=== PATIENT | male | born 1955 | race Caucasian/White ===

== ENCOUNTER 2019-01-01 21:06 | Inpatient (IN) | payer SELFPAY ==
[~2019-01-01] VITALS: Ht 170.2 cm; Wt 56.0 kg
--- NOTE | 2019-01-01 21:30 | NUR ---
PT BIBA DUE TO ALOC, PER PARAMEDICS THAT THEY FOUND PT IN SOMEONE'S BACK YARD AND SEEMS LIKE A FARM WITH A LOT OF CHICKENS, PARAMEDICS STATED THAT PER TRANSPORTATION WORKER OF THE HOUSE THAT PT WOULD COME TO FEED CHICKENS AT TIMES BUT THEY DON'T KNOW PT, UPON ARRIVAL PT IS AWAKE BUT DISORIENTED AND CONFUSED, UNABLE TO ANSWER THE QUESTIONS, INCLUDED WITH NAME, OR WHERE IS HE AT, PT ABLE TO FOLLOW SIMPLE COMMANDS IN HUNGAR[place], BREATHING EVEN AND UNLABORED, LUNG SOUNDS CLEAR, ON ROOM AIR WITH SPO2:100%, NO RESP DISTRESS NOTED, PULSES PALPABLE, NO EDEMA NOTED, GENERALIZED WEAKNESS, ABD SOFT AND FLAT WITH ACTIVE BS, BED BATH GIVEN UPON ARRIVAL DUE TO PT WAS FULL WITH URINE AND FECES, MSE DONE BY DR CLIFTON.
--- NOTE | 2019-01-01 22:03 | NUR ---
PT WAS FOUND AT [address] [place] [address]. SPOKE WITH [facility] JANA BATES ADVISED TO CALL [facility] .
--- NOTE | 2019-01-01 22:05 | NUR ---
CALLED [facility] AND SPOKE WITH CRIS, PER CRIS THAT ALL THE INFO THEY HAVE IS ON THE RUN SHEET.
[2019-01-01 22:09] LABS: UA SPECIFIC GRAVITY <=1.005 (1.005-1.035); microscopic required? YES; urine erythrocyte 2+ (NEGATIVE)
[2019-01-01 22:10] LABS: BASOPHIL % 0.3 % (0-2)
[2019-01-01 22:11] LABS: PLATELET COUNT 81 x10^3mcL (130-400)
--- NOTE | 2019-01-01 22:13 | NUR ---
PT TO CT HEAD VIA GURNEY WITH NO DISTRESS NOTED.
--- NOTE | 2019-01-01 22:15 | NUR ---
SPOKE WITH [facility] JARET, PER JARET THAT SHE WILL SEND SOMEONE TO ED AND TRY TO IDENTIFY PT.
--- NOTE | 2019-01-01 22:22 | NUR ---
PT BACK FROM CT HEAD, NO DISTRESS NOTED.
--- NOTE | 2019-01-01 22:28 | NUR ---
DR CLIFTON MADE AWARE OF PT'S BP-178/101, NO NEW ORDER RECEIVE AT THIS TIME.
--- NOTE | 2019-01-01 22:34 | NUR ---
DR CLIFTON MADE AWARE OF PT'S TROP 0.114.
[2019-01-01 22:48] LABS: ALKALINE PHOSPHATASE 126 U/L (46-116); ALT/SGPT 53 U/L (16-63); AST/SGOT 103 U/L (15-37); BILIRUBIN TOTAL 3.8 mg/dL (0.20-1.00); CALCIUM 8.2 mg/dL (8.5-10.1); CARBON DIOXIDE 19.6 mmol/L (21-32); CHLORIDE SERUM 111 mmol/L (98-107); CREATININE SERUM 1.4 mg/dL (0.7-1.3); GFR1 55 mL/min; GLUCOSE SERUM 190 mg/dL (74-106); SODIUM SERUM 148 mmol/L (136-145); TOTAL PROTEIN, SERUM 7.6 g/dL (6.4-8.2)
[2019-01-01 22:50] LABS: ALBUMIN 2.4 g/dL (3.4-5.0)
[2019-01-01 22:54] LABS: POTASSIUM SERUM 2.7 mmol/L (3.5-5.1)
--- NOTE | 2019-01-01 22:57 | NUR ---
DR CLIFTON MADE AWARE OF PT'S LACTID ACID-3.1, K:2.7.
[2019-01-01 23:01] LABS: CK-MB 2.6 ng/mL (0-3.6)
--- NOTE | 2019-01-01 23:13 | NUR ---
OFFICER YOVANNY IS HERE AND TRY TO IDENTIFY PT'S NAME.
--- NOTE | 2019-01-01 23:31 | NUR ---
OFFICER YOVANNY WAS ABLE TO IDENTIFY PT, PT'S NAME- JIM CUNNINGHAM, ISSAC- [birth year]. SSI:[id number]
--- NOTE | 2019-01-01 23:33 | NUR ---
PT TO CT ANGIO-PULMONARY VIA GURNEY.
--- NOTE | 2019-01-01 23:43 | NUR ---
PER ADMITTING- KLESI THAT ALL THE INFO GIVEN BY [facility], ALL THE INFO CAME OUT WITH JIM VITALE.
--- NOTE | 2019-01-01 23:45 | NUR ---
PT IS BACK FROM CT ANGIO PULMONARY.
[2019-01-02] VITALS (8 sets, daily range): BP systolic 154–197; BP diastolic 80–103
--- NOTE | 2019-01-02 00:16 | NUR ---
ASA 324 MG VIA ORAL ADMINISTERED, DR CLIFTON MADE AWARE OF PT'S AMARILIS:182/101, NO NEW ORDER RECEIVE AT THIS TIME.
[2019-01-02 00:19] LABS: AMPHETAMINE QUAL UR NONE DETECTED (See below)
--- NOTE | 2019-01-02 00:42 | NUR ---
REPORT CALLED TO ARTURO-YUSUF, ALL QUESTIONS ANSWERED AND CONCERNS ADDRESSED.
[2019-01-02 00:54] LABS: MAGNESIUM 1.4 mg/dL (1.8-2.4); PHOSPHOROUS 3.6 mg/dL (2.5-4.9)
--- NOTE | 2019-01-02 01:20 | NUR ---
RECEIVED PT FROM ED VIA STEPHANIE. PT STATED HIS NAME IS CONOR, BUT PATIENT WAS IDENTIFED BY PD TO BE JIM SILVER. PT IS DISORIENTED AND CONFUSED. TELE 7 PLACED ON PT READING STA. IV NOTED TO LAC PATENT AND INTACT. ENDORSD PT TO PRIMARY NURSE ARTURO
--- NOTE | 2019-01-02 01:35 | NUR ---
PT ARRIVED FROM ED. A/O X1, CONFUSED. TELE #7 SHOWING SINUS TACHYCARDIA, DENIES CHEST PAIN AT THIS TIME. PULSES PALPABLE IN ALL EXTREMITIES, NO EDEMA NOTED. PURULENT DRAINAGE NOTED TO EYES. LUNG SOUNDS CTA BILATERALLY, NO RESPIRATORY DISTRESS. BOWEL SOUNDS ACTIVE, PT HAD BLACK TARRY STOOLS. DR ANDRADE INFORMED. GENERALIZED WEAKNESS. ABRASIONS TO BLE, STEPHANIA. IV PATENT AND INTACT. BED IN LOWEST POSITION, SIDE RAILS UP X2, CALL LIGHT WITHIN REACH. WILL CONTINUE TO MONITOR.
--- NOTE | 2019-01-02 01:41 | NUR ---
TEMP 102.1, DR ANDRADE INFORMED.
--- NOTE | 2019-01-02 01:57 | NUR ---
LACTIC ACID 2.5, DR LUPE ROJAS.
--- NOTE | 2019-01-02 06:12 | NUR ---
PT CURRENTLY RESTING IN BED, NO ACUTE DISTRESS. A/O X1. ALL NEEDS MET AND ATTENDED TO. BP 180/106, TEMP 101, DR YAN INFORMED. BED IN LOWEST POSITION, SIDE RAILS UP X2, CALL LIGHT WITHIN REACH. IV PATENT AND INTACT. WILL ENDORSE CARE TO ONCOMING NURSE.
[2019-01-02 07:16] LABS: BASOPHIL % 0.1 % (0-2)
[2019-01-02 07:43] LABS: CALCIUM 7.4 mg/dL (8.5-10.1); CARBON DIOXIDE 20.8 mmol/L (21-32); CHLORIDE SERUM 115 mmol/L (98-107); CREATININE SERUM 1.1 mg/dL (0.7-1.3); GFR1 > 60 mL/min; GLUCOSE SERUM 139 mg/dL (74-106); MAGNESIUM 1.4 mg/dL (1.8-2.4); PHOSPHOROUS 2.8 mg/dL (2.5-4.9); SODIUM SERUM 150 mmol/L (136-145)
[2019-01-02 07:44] LABS: PLATELET COUNT 70 x10^3mcL (130-400); RED CELL DISTRIBUTION WIDTH 15.3 % (11.5-14.5)
[2019-01-02 07:51] LABS: POTASSIUM SERUM 2.5 mmol/L (3.5-5.1)
[2019-01-02 08:16] LABS: BILIRUBIN DIRECT 1.81 mg/dL (0.0-0.2); BILIRUBIN TOTAL 3.5 mg/dL (0.20-1.00)
--- NOTE | 2019-01-02 08:54 | NUR ---
AT 0705 - RECEIVED PATIENT FROM NIGHT NURSE. RESTING WITH EYES CLOSED. RESPIRATIONS REGULAR. MONITOR SHOWING SINUS TACH; RATE 112. PATIENT HAD RECEIVED HYDRALAZINE AT 0625 FOR ELEVATED BP. COOLING MEASURES IN PLACE FOR FEVER. IV INFUSING NS AT 150 ML/HR. BED EXIT ALARM ACTIVE. AT 0730 - ULTRASOUND AT BEDSIDE. AT 0750 - PATIENT DROWSY BUT AWAKE. SAYS THAT HIS NAME IS ANGELICA CONNELLY. UNABLE TO GIVE BIRHT YEAR BUT SAYS THAT HE IS 52 YRS OLD. SPEAKING MOSTLY IN [place]. RECEIVED CALL FROM LAB WITH K+ OF 2.5 BP NOW 154/80. TEMP 99.1 CALL PLACED FOR DOCTOR TO NOTIFY OF K+ LEVEL AND LATEST BP PATIENT WAS ORDERED IVP METOPROLOL. AT 0808 - DECEIVED CALL FROM LAB WITH TROPONIN LEVEL OF 0.149. CALL PLACED FOR DR NGUYEN. AT 0815 - DR NGUYEN PER PHONE. NOTIFIED OF K AND TROPONIN LEVELS. OK TO HOLD IV METOPROLOL AT THIS TIME.
--- NOTE | 2019-01-02 09:26 | NUR ---
PATIENT AWAKE AND COOPERATIVE. WAS ABLE TO TAKE PO MEDS AT SCHEDULED.
--- NOTE | 2019-01-02 13:26 | NUR ---
AT 1100 - SEEN BY DR SARMIENTO DURING MORNING ROUNDS. MEDICAL TEAM DOCTORS AND CHARGE NURSE ALSO PRESENT. PATIENT IS MORE AWAKE AT THIS TIME BUT REMAINS CONFUSED. AMBULATED TO BATHROOM WITH ASSISTANCE BUT TOO WEAK AND UNSTEADY TO RETURN TO BED AMBULATING, SO RETURNED TO BED IN WHEELCHAIR. DOCTORS WILL ORDER PO MEDICATION FOR ELEVATED BP INSTEAD OF IV METOPROLOL. AT 1110 - COMMENCED 20 MEQ K-RIDER. TO INFUSE OVER 2 HR. AT 1240 - PATIENT HAD ANOTHER SEMI-LIQUID BM; DARK BROWN, BUT UNABLE TO COLLECT SPECIMEN DUE TO PATIENT GETTING OUT OF BED UNASSISTED AND HAVING BM ON THE FLOOR. PATIENT WASHED AND RETURNED TO BED. SITTING UP FOR LUNCH. AT 1300 - IV INFUSION CHANGED TO 1/2 NS AT 100ML/HR PER NEW ORDERS. AT 1315 - SEEN BY DR CRANDALL. HE SPOKE WITH DR STEVENS ABOUT RECOMMENDATIONS. PATIENT RESTING QUIETLY. BED EXIT ALARM ACTIVE.
--- NOTE | 2019-01-02 13:52 | NUR ---
GIVEN APRESOLINE 10 MG PO PER EMAR FOR PERSISTANTLY ELEVATED BP OF 180/85.
--- NOTE | 2019-01-02 13:56 | NUR ---
RECEIVED CALL FROM LAB WITH TROPONIN OF 0.111. THIS IS A DOWNWARD TREND, NOT REPORTED.
--- NOTE | 2019-01-02 14:17 | NUR ---
AT 1405 - RECEIVED CALL FROM LAB WITH LACTIC ACID OF 2.5. DR CASTANEDA NOTIFIED. RECEIVED ORDERS FOR BOLUS OF 500 ML
--- NOTE | 2019-01-02 14:34 | NUR ---
AT 1430 - COMMENCED 500 ML IV BOLUS. PATIENT ALSO GIVEN 1 MG ATIVAN PO PER EMAR. ALSO GIVEN DOSE OF KCL 40 MEQ PO. ECHOCARDIOGRAM AT BEDSIDE.
--- NOTE | 2019-01-02 15:00 | NUR ---
Discount pharmacy card and list for low cost medical clinics given to patient by Pamela Mendoza.
--- NOTE | 2019-01-02 15:27 | NUR ---
PATIENT HAVING FREQUENT LARGE LIQUID BOWEL MOVEMENTS IN BED. WASHED AND MADE COMFORTABLE. PATIENT IS AWAKE, ALERT BUT REMAINS CONFUSED.
--- NOTE | 2019-01-02 15:44 | NUR ---
BOLUS COMPLETED. IV FLUID NOW D5 1/2 NS + 20 MEQ KCL AT 83 ML/HR. RADIOLOGY WILL TAKE PATIENT FRO CT ABDOMEN.
--- NOTE | 2019-01-02 16:44 | NUR ---
PER CT STAFF, CT CANNOT BE DONE UNTIL AFTER MIDNIGHT PATIENT HAS NHAD CT WITH CONTRAST LESS THEN 24 HR AGO.
--- NOTE | 2019-01-02 18:49 | NUR ---
PATIENT SLEEPING. RESPIRATIONS REGULAR. MONITOR SHOWING SINUS RHYTHM; RATE 78. IV INFUSING D5 1/2 NS + 20 MEQ KCL AT 83 ML/HR. NO FURTHER BM. WILL ENDORSE CARE TO NIGHT NURSE.
--- NOTE | 2019-01-02 22:50 | NUR ---
CHANGED WHOLE BED LINENS AND GOWN PT HAS WATERY STOOL, AWAKE FOLLOWS COMMANDS DURING CARE AND ADL'S, REQUIRES MAX ASSIST FOR BED MOBILITY AND REPOSITIONING NOTED WITH MARKED WEAKNESS, DENIES PAIN, PRN BP MEDS GIVEN, PT IS ASYMTOMATIC WILL CONT TO MONITOR.
--- NOTE | 2019-01-03 03:25 | NUR ---
PT AWAKE RESTLESS, TRYING TO GET OOB, WITH PERIODS OF CONFUSION, MUMBLES AND DOESNT FOLLOW COMMANDS, HAD ANOTHER BM WATERY, CHANGED AND KEEP DRY AND CLEAN ATIVAN IV GIVEN PER PRN ORDER, REPOSITIONED TO COMFORT, CONT TO MONITOR.
[2019-01-03 05:37] VITALS: BP 142/90
--- NOTE | 2019-01-03 06:15 | NUR ---
PT SLEEPING AFTER GETTING ATIVAN IV PER PRN ORDER, NO DISTRESS, NO S/SX OF PAIN NOR DISCOMFORTS, KEEP DRY AND CLEAN, CHECKED AT INTERVALS, WILL ENDORSE TO ONCOMING NURSE.
[2019-01-03 06:34] LABS: BASOPHIL % 0.7 % (0-2)
[2019-01-03 07:00] LABS: PLATELET COUNT 77 x10^3mcL (130-400)
[2019-01-03 07:08] LABS: CALCIUM 7.3 mg/dL (8.5-10.1); CARBON DIOXIDE 20.2 mmol/L (21-32); CHLORIDE SERUM 116 mmol/L (98-107); CREATININE SERUM 0.9 mg/dL (0.7-1.3); GFR1 > 60 mL/min; GLUCOSE SERUM 120 mg/dL (74-106); MAGNESIUM 1.4 mg/dL (1.8-2.4); PHOSPHOROUS 2.6 mg/dL (2.5-4.9); SODIUM SERUM 148 mmol/L (136-145)
--- NOTE | 2019-01-03 07:26 | NUR ---
RECEIVED PATIENT FROM NIGHT NURSE. SLEEPING. RESPIRATIONS REGULAR. MONITOR SHOWING SINUS RHYTHM WITH OCCASIONAL PAC; RATE 68. IV INFUSING D5 1/2 NS + 20 MEQ KCL AT 83 ML/HR. SEEN BY DR STEVENS. DR WILL CHANGE PATIENT SEDATION/ATIVAN SCHEDULE.
[2019-01-03 07:29] LABS: POTASSIUM SERUM 2.8 mmol/L (3.5-5.1)
--- NOTE | 2019-01-03 07:30 | NUR ---
RECEIVED CALL FROM LAB WITH K+ LEVEL OF 2.8. DR STEVENS NOTIFIED.
[2019-01-03 08:16] VITALS: BP 171/84
--- NOTE | 2019-01-03 09:03 | NUR ---
AT 0840 - PATIENT TAKEN TO RADIOLOGY FOR CT SCAN.
--- NOTE | 2019-01-03 10:07 | NUR ---
AT 0935 - BACK IN ROOM. COMMENCED FIRST BAG OF MAGNESIUM RIDER. PATIENT TO RECEIVE TOTAL OF 4 GRAMS FOR MG LEVEL OF 1.4.
--- NOTE | 2019-01-03 10:13 | NUR ---
SEEN BY DR SARMIENTO DURING MORNING ROUNDS. MEDICAL TEAM DOCTORS AND CHARGE NURSE ALSO PRESENT. PLAN TO ADJUST ATIVAN DOSAGE. PLAN FOR PLACEMENT EARLY NEXT WEEK.
--- NOTE | 2019-01-03 10:28 | NUR ---
Initial Nutrition Assessment: Mehdi Ponce 242T-B Dx:ALOC, Sepsis PMHx: Unknown PSHx: Unknown Labs: (01/03) Na:148H, K:2.8L, BH, Ca:7.3L, M.4L, CK:735H, Trop:0.149/0.111H, H/H:10.9/32L (01/02) Ammonia: 70H, Lactic acid:2.4H, Meds: Aldactone, Ativan, Cephulac, D5 NS, Erythromycin, Folic Acid, KCL, Protonix, Theragran, Zofran Diet: Regular PO intake since admission: (01/02) B:50% L:40% (01/03) NPO for CT of abdomen Ht: 67in, 5'7" Wt:123#, 55.82kg BMI:19.3kg/m2 (normal) Bed scale: IBW:148#, 67kg %IBW:83% UBW: Age: 45 y/o male Food Allergies: unable to obtain information Skin: RLE dark discoloration, lump 10cm on right side of neck Pierre: 18 Edema: None GI: active bowel sounds Last BM: 01/03. frequent watery stools due to pt on lactulose and for CT of abdomen. Nutrition Consult: pt altered and malnourished Per H&P, pt [place], unconscious. Pt's history is limited due to AMS. Per progress note 01/02, pt is still confused but getting better. Per Dr. Ji (GI), recommend CT scan of abdomen with contrast 3 phasic (liver, in particular) and start pt on Ativan for alcohol withdrawal along with folic acid, thiamine and MVI. During visit, pt was not in room. Pt was downstairs for CT of abdomen. Per nurse note, pt eating 40-50% of meals. pt with loose stools due to nbeing on lactulose. Problem with: N/V/C: no D: Yes, on lactulose for elevated ammonia level Problems with: Chewing/Swallowing: No Current appetite: poor Recent wt change: unable to assess %wt change: unable to assess Vitamin/Supplement use: unable to obtain information due to AMS Special diet at home: unable to obtain information due to AMS Physical activity: unable to obtain information due to AMS Nutrition education given No, pt with AMS Food-drug interactions? Yes Education given? No Estimated Nutritional Needs Based on body weight actual body weight 56kg Energy:1770-7900 kcal/day (30-35kcal/kg for weight gain ) Protein: g/day (1g/kg for maintenance) Fluid: 1680-1960mL/day (1 mL/kcal) Nutrition Diagnosis: 1. Inadequate oral intake related to pending CT of abdomen as evidenced by current NPO status. Intervention 1. Recommend advance diet as tolerated to Regular. 2. Recommend adding Ensure Enlive BID (provides 700kcal and 40g protein) due to PO intake 45% x 2 meals. Monitor/Evaluate Goal: NPO <3 days, diet advancement and PO intake at least 75% of estimated needs Monitor: NPO status, diet advancement, PO intake, Labs, GI function and weights F/U in 2-3 days as high risk:01/05-3
--- NOTE | 2019-01-03 11:55 | NUR ---
K-RIDER NOW IN PROGRESS. PATIENT REMAINS DROWSY BUT EASILY ROUSED.
[2019-01-03 11:56] VITALS: BP 174/99
--- NOTE | 2019-01-03 13:08 | NUR ---
RECEIVED CALL FROM RADIOLOGY WITH CRITICAL REPORT OF CT ABDOMEN. SPOKE WITH DR NGUYEN AND SHE VISUALLY NOTED PRINTED REPORT. SHE WILL TELL DR SARMIENTO. PER REPORT, MASS SUSPICIOUS FOR HEPATOCELLULAR CARCINOMA.
--- NOTE | 2019-01-03 14:28 | NUR ---
AT 1400 - GIVEN PRN DOSE OF HYDRALAZINE 10 MG PO FOR BP 174/90. PATIENT WAKES BRIEFLY, BUT REMAINS SLEEPING MOST OF THE TIME. HAS BEEN INCONTINENT OF URINE AND STOOL. BM LIQUID BROWN BUT WAS SMEERED ON INCONTINENCE PAD AND UNABLE TO BE COLLECTED FOR STOOL SPECIMEN. PATIENT WASHED AND REPOSITIONED FOR COMFORT.
--- NOTE | 2019-01-03 15:41 | NUR ---
PATIENT IS A LITTLE MORE AWAKE AT THIS TIME. WAS ABLE TO EAT SOME LUNCH - APPROX 40% OF FOOD ON TRAY. RECEIVED ORDERS FOR SURGICAL AND ONCOLOGY CONSULT. PER DR NGUYEN, DR SIMPSON WILL SEE PATIENT ON OUTPATIENT BASIS BUT DR BLAIR WILL SEE HIM DURING HOSPITAL STAY.
[2019-01-03 16:06] VITALS: BP 162/73
[2019-01-03 16:41] VITALS: BP 112/73
--- NOTE | 2019-01-03 17:06 | NUR ---
FLY SETTER VASQUEZ CALLED TO [facility] AND SPOKE WITH CYNTHIA TO VERIFY PATIENT'S NAME AND DATE OF BEEN GIVEN BY THE PATIENT TO THE NURSE ELIZABETH THAT HE'S NAME IS ANGELICA COLEMAN AND 59 [address] [employer]. SHE TOLD THE FLY SETTER THAT IT WAS ALREADY VERIFIED. CYNTHIA CALLED BACK AND SPOKE WITH VASQUEZ AND TOLD THAT SHE COMPARED HIS NAME IT'S ANGELICA BUT SPELLED HONG AND IS SAME AND SHE GAVE HIS ID NO [id number].
--- NOTE | 2019-01-03 18:00 | NUR ---
CALLED TO ADMITTING TO CHANGE HIS NAME AND IN THE FACE SHEET.
--- NOTE | 2019-01-03 18:56 | NUR ---
STIL DROWSY BUT MORE AWAKE THIS PM. CALM AND COOPERATIVE. ALL MG AND K-RIDERS COMPLETED. IV NOW INFUSING D5 1/2 NS + 20 MEQ KCL AT 80 ML/HR. NO FURTHER BM THIS AFTERNOON. PATIENT ATE DINNER. GOOD APPETITE. WILL ENDORSE CARE TO NIGHT NURSE.
--- NOTE | 2019-01-03 19:35 | NUR ---
ASLEEP AROUSABLE TO VERBAL STIMULUS ORIENTED X1 ABLE TO TELL HIS NAME, SLOW TO RESPOND IN SHORT PHRASES, MARKED WEAKNESS MAX ASSIST FOR BED MOBILITY, INCONTINENT BOTH BOWEL AND BLADDER HAS EPISODES OF LOOSE STOOL ON LACTULOSE FOR ELEVATED AMMONIA LEVEL, PT ON D5 1/2NS +20K @ 80CC/HR IV ACCESS LAC PATENT N0N INFIL, SR IN THE MONITOR TELE #7, SCD'S FOR DVT PROPHYLAXIS, REPOSITIONED TO COMFORT AND KEEP DRY AND CLEAN, NO DISTRESS LUNGS CTA, NO COUGHING OR CHEST CONGESTION, SHIFT ASSESSMENT, CONT TO MONITOR.
[2019-01-03 21:03] VITALS: BP 117/73
--- NOTE | 2019-01-03 22:02 | NUR ---
PT AWAKE AT THIS TIME ASKING FOR WATER, ABLE TO DRINK 2 GLASSES OF WATER, ASPIRATION PREC, DENIES PAIN, AZERI SPEAKING ABLE TO MAKE NEEDS KNOWN, ASKING TO TURN DOWN TV VOLUME, ATTENDED NEEDS, BED ALARM ON.
[2019-01-04 05:35] VITALS: BP 151/73
--- NOTE | 2019-01-04 07:09 | NUR ---
PT AWAKE ASKING FOR SODA, NO DISTRESS SLEPT WELL DURING THE SHIFT, HAS EPISODES OF GETTING OUT OF BED X1 DURING THE SHIFT, BED ALARM ON, AM MEDS GIVEN, NO SIGNIFICANT CHANGES.
[2019-01-04 07:23] LABS: BASOPHIL % 1.4 % (0-2)
[2019-01-04 07:36] LABS: ALKALINE PHOSPHATASE 137 U/L (46-116); ALT/SGPT 69 U/L (16-63); AST/SGOT 136 U/L (15-37); BILIRUBIN TOTAL 2.32 mg/dL (0.20-1.00); CALCIUM 7.1 mg/dL (8.5-10.1); CHLORIDE SERUM 111 mmol/L (98-107); CREATININE SERUM 0.9 mg/dL (0.7-1.3); GFR1 > 60 mL/min; GLUCOSE SERUM 108 mg/dL (74-106); MAGNESIUM 1.8 mg/dL (1.8-2.4); PHOSPHOROUS 2.8 mg/dL (2.5-4.9); SODIUM SERUM 141 mmol/L (136-145)
[2019-01-04 07:37] LABS: PLATELET COUNT 74 x10^3mcL (130-400); RED CELL DISTRIBUTION WIDTH 14.7 % (11.5-14.5)
[2019-01-04 07:42] LABS: ALBUMIN 1.8 g/dL (3.4-5.0); TOTAL PROTEIN, SERUM 5.9 g/dL (6.4-8.2)
[2019-01-04 07:43] LABS: POTASSIUM SERUM 2.9 mmol/L (3.5-5.1)
--- NOTE | 2019-01-04 07:55 | NUR ---
AAO TO SELF. TELE # 7 SR. LUNGS CTA. NO SOB. O2 SAT ON RA 99%. BS'S ACTIVE TIMES 4. BALDERRAMA WITH GENERALIZED WEAKNESS. IV SITE LAC PATENT, CDI. PERIPHERAL PULSES PALPABLE. NO EDEMA. DRY SCALY PATCH TO LLE LATERAL SCHINN. NO C/O PAIN. NO SOB. O2 SAT ON RA 99%.
[2019-01-04 09:58] VITALS: BP 153/78
[2019-01-04 13:07] VITALS: BP 159/84
--- NOTE | 2019-01-04 13:20 | NUR ---
DR GOODRICH IS AWARE THAT PATIENTS SERUM POTASSIUM IS 2.9, I SENT A PAGE GATE THIS AM AND ALSO TOLD HER DURING ROUNDS TO VISIT PATIENT. I ALSO TOLD KAY SANDOVAL CHARGE NURSE AND SHE SAID SHE WOULD ALSO SEND A PAGE GATE TO REMIND HER.
--- NOTE | 2019-01-04 16:39 | NUR ---
HIS COUSIN CAME TO VISIT HIM. THE COUSINS NAME IS ZHOU VIRK, HIS PHONE NUMBER IS [phone]. HE STATES THE PATIENT IS HOMELESS, SORT OF. THE PATIENT LIVES AT [address] [place] [id number]. HE ACTUALLY LIVES ON THE PROPERTY OF THIS ADDRESS, IN A [employer] THAT THEY FIXED UP FOR HIM, THEY MADE A ROOM FOR HIM THERE. THIS ADDRESS LISTED, HAS A COUSIN WHO LIVES THERE, HIS NAME IS MICHELET ANDREW. ZHOU DOESNT KNOW WHAT MICHELET ANDREW PHONE NUMBER IS. THIS PATIENT HAS NO CHILDREN, OR PARENTS AND HIS SIBLINGS ARE PER ZHOU'S INFORMATION HE GAVE US. HE ONLY HAS 3 COUSINS, THE 2 LISTED ABOVE AND ANOTHER ONE THAT ZHOU ISNT AWARE OF WHERE HE IS. THIS ADDRESS IS WHERE THE PATIENT WAS FOUND, LAYING OUTSIDE OF THE [place] [place] AND THE PEOPLE CALLED 911 AT THE ADDRESS. AT THIS ADDRESS ARE OTHER PEOPLE BESIDES THE COUSIN WHO LIVE THERE, BUT ZHOU DOESNT KNOW WHO THEY ARE.
[2019-01-04 17:20] VITALS: BP 137/72
--- NOTE | 2019-01-04 18:13 | NUR ---
AAO TO SELF. COOPERATIVE. TELE # 7 SR. IV SITE RFA CDI. NO C/O PAIN. NO SOB. FEEDER. STILL HAVING LOOSE STOOLS, SENT A SAMPLE TO LAB FOR OB STOOL, IT WAS NEGATIVE. NO VISITORS AT THIS TIME.
[2019-01-04 18:14] VITALS: Ht 170.2 cm; Wt 56.0 kg
--- NOTE | 2019-01-04 18:29 | NUR ---
BED ALARM ON, HE GETS CONFUSED AND WILL CLIMB OUT OF BED. FALL PRECAUTIONS ON, FALLING STAR AT DOOR, YELLOW SOCKS ON AND YELLOW ARM BAND.
--- NOTE | 2019-01-04 18:30 | NUR ---
DR GILMAN CALLED, HE ASKED HOW MANY CONSULTS FOR SURGEONS THERE WERE ORDERED FOR THIS PATIENT AND IF HE WAS ONE OF THEM. HE SAID HE WAS SENT A CONSULT TO SEE THIS PATIENT ABOUT HIS HEPATOCELLULAR CARCINOMA. I TOLD HIM DR BLAIR IS A CONSULT, BUT NOT HIM, DR GILMAN. DR GILMAN SAID WE DONT NEED 2 SURGEONS ON CONSULT SO HE WONT BE SEEING THIS PATIENT.
--- NOTE | 2019-01-04 19:48 | NUR ---
SHIFT REASSESSMENT DONE.PATIENT REMAINS CONFUSED,BED ALARM ON FOR SAFETY.PATIENT IS HOMELESS.BREATHING EASY.GEN WEAKNESS.FALL PRECAUTION.IVF INFUSING RFA 22 GUAGE NEW TODAY.TELE 7 SR.PATIENT IS FEEDER PER REPORT.DRY SKIN,PATIENT IS HOMELESS.INCONTINENT OF URINE.KEEP CLEAN AND DRY,GOOD SKIN CARE PROVIDED.CALL LIGHT IN REACH,INSTRUCTED HOW TO USE IT.
[2019-01-04 20:51] VITALS: BP 161/78
--- NOTE | 2019-01-04 21:00 | NUR ---
ALL PM MEDS GIVEN SCHEDULED,SWALLOWS WELL.
--- NOTE | 2019-01-04 22:00 | NUR ---
PATIENT BED ALARM ON,GOT UP,WANTED RESTROOM,HAD LACTULOSE,WATERY STOOL,KEEP CLEAN AND DRY.
--- NOTE | 2019-01-04 23:00 | NUR ---
WANTING SODA AND GIVEN.SWALLOWS WELL.
--- NOTE | 2019-01-05 01:32 | NUR ---
PATIENT CHECKED AT INTERVALS,SLEEPING COMFORTABLY.CALL LIGHT,BED ALARM ON.
--- NOTE | 2019-01-05 04:59 | NUR ---
ASSISTED TO SIT UP,USING URINAL,SAURABH URINE OUTPUT.IVF INFUSING.
[2019-01-05 05:06] VITALS: BP 147/74
--- NOTE | 2019-01-05 05:53 | NUR ---
I AND O MEASURED.IVF INFUSING.WILL CONTINUE PLAN OF CARE.BED AAM ON.
[2019-01-05 06:30] LABS: ALKALINE PHOSPHATASE 214 U/L (46-116); ALT/SGPT 73 U/L (16-63); AST/SGOT 125 U/L (15-37); BILIRUBIN TOTAL 2.05 mg/dL (0.20-1.00); CARBON DIOXIDE 18.4 mmol/L (21-32); CHLORIDE SERUM 110 mmol/L (98-107); GFR1 > 60 mL/min; GLUCOSE SERUM 114 mg/dL (74-106); MAGNESIUM 1.5 mg/dL (1.8-2.4); PHOSPHOROUS 3.3 mg/dL (2.5-4.9); POTASSIUM SERUM 3.4 mmol/L (3.5-5.1); SODIUM SERUM 139 mmol/L (136-145)
[2019-01-05 06:31] LABS: ALBUMIN 1.7 g/dL (3.4-5.0); TOTAL PROTEIN, SERUM 5.7 g/dL (6.4-8.2)
[2019-01-05 06:55] LABS: BASOPHIL % 0.7 % (0-2)
[2019-01-05 07:30] LABS: PLATELET COUNT 85 x10^3mcL (130-400); RED CELL DISTRIBUTION WIDTH 15.1 % (11.5-14.5)
--- NOTE | 2019-01-05 07:48 | NUR ---
RECEIVED AWAKE, FOLLOWS COMMANDS. NO ACUTE RESP. DISTRESS NOTED. NO C/O PAIN OR DISCOMFORT. IVF INFUSING WELL AND SITE CLEAR.CALL LIGHT WITHIN REACH. WILL CONTINUE WITH PLAN OF CARE.
[2019-01-05 08:45] VITALS: BP 137/92
[2019-01-05 11:54] VITALS: BP 162/87
--- NOTE | 2019-01-05 12:18 | NUR ---
RESTING IN NO DISTRESS, NO C/O PAIN OR DISCOMFORT. HAD 3 WATERY STOOLS THIS AM. SAFETY PREC. MAINTAINED.
--- NOTE | 2019-01-05 13:19 | NUR ---
1. Recommend continue with Regular diet.
--- NOTE | 2019-01-05 13:19 | NUR ---
Follow-up Nutrition Assessment :Rodrigue Mathur 242T-B Dx: ALOC Labs: (01/05) K:3.4L, BH, Ca:7L, T bili:2.05H, AST:125H, ALT:73H, M.5L, Ammonia:84H, H/H:10.7/32L Meds:Aldactone, Ativan, Cephulac, D51/2 NS, Erythromycin, Folic acid, Inderal, Protonix, Theragran, Vitamin B1 and Zofran Diet: Regular PO Intake: (01/03) L:40% (needs max assistance at all times per nurse note) D:85% (01/04) B:100% L:100% D:100% (01/05) B:100% Weights: (01/03) 55.8kg (01/05)146.6kg (66kg) pt seems closer to bedscale weight Skin: dry scabs to LLE Pierre: 18 Edema: none GI: active bowel sounds Last BM: 01/04, loose stools due to being on Lactulose Per progress note 01/04, pt is a poor historian. AMS 2/ acute encephalopathy (improving). US of and with findings of 5cm mass in the left lobe of liver. Ct with contrast suspicious for hepatocellular carcinoma. Oncologist notified. During visit, pt was seen sitting up in bed eating lunch (observed >90% eaten). Pt nodded when asked if he has a good appetite. Asked if he has N/V/C, pt nodded no. Per RN note, pt with loose stools due to being on lactulose. Estimated Nutritional Needs Based on actual body weight ( 56kg) Energy:4569-2228 kcal/day (30-35kcal/kg for weight gain) Protein: 56g-67/day (1-1.2g/kg for preservation of LBM) Fluid: mL/day (1 mL/kcal) or per MD Nutrition Diagnosis: 1.Inadequate oral intake related to pending CT of abdomen as evidenced by current NPO status (resolved, pt on PO diet) Intervention: 1. Recommend continue with Regular diet. Monitor/Evaluate: Previous goal: NPO<3 days, diet advancement, PO intake at least 75% of estimated needs (met) Goal: PO intake at least 75% of estimated needs Monitor: PO intake, Labs, GI function F/U in 7 days as low risk:01/12
[2019-01-05 17:07] VITALS: BP 155/84
--- NOTE | 2019-01-05 18:49 | NUR ---
REMAINS IN NO DISTRESS, AWAKE AND ALERT. MORE ALERT THIS PM. FOLLOWS COMMANDS. NO C/O PAIN OR DISCOMFORT.IVF INFUSING WELL AND SITE CLEAR. CALL LIGHT WITHIN REACH AND SIDE RAILS UP. WILL BE ENDORSED TO INCOMING SHIFT.
--- NOTE | 2019-01-05 19:29 | NUR ---
AWAKE, ALERT, ABLE TO STATE NAME, ABLE TO STATE HE CAME FROM [facility], HAS DIFFICULTY REMEMBERING HIS BIRTHDAY, UNABLE TO STATE WHERE HE IS RIGHT NOW. RE-ORIENTED. GENERALIZED WEAKNESS. AMBULATED TO RESTROOM WITH SOME ASSISTANCE FOR SAFETY. PASSED LOOSE STOOL. IVF OF D5 1/2 NS WITH 20 MEQ KCL AT 80ML/HR INFUSING WELL TO IV SITE TO RIGHT FOREARM, IV SITE FREE FROM ERYTHEMA OR SWELLING. BREATHING EVEN AND UNLABORED ON ROOM AIR. INSTRUCTED TO USE CALL LIGHT TO CALL FOR ASSISTANCE, PLACED WITHIN EASY REACH. INSTRUCTED TO ALWAYS CALL FOR ASSISTANCE IF NEEDING TO GET OUT OF BED. HOB ELEVATED 40 DEG. PLACED BED ALARM ON.
[2019-01-05 20:31] VITALS: BP 119/83
--- NOTE | 2019-01-05 22:01 | NUR ---
EYES CLOSED, BREATHING EVEN AND UNLABORED. BED ALARM ON. HOB KEPT ELEVATED 30 DEG
--- NOTE | 2019-01-06 00:32 | NUR ---
eyes closed, breathing even and unlabored. bed alarm on. call light within easy reach. hob elevated 30 deg.
[2019-01-06 05:33] VITALS: BP 172/92
--- NOTE | 2019-01-06 05:38 | NUR ---
URINE SPECIMEN SENT TO LAB
--- NOTE | 2019-01-06 05:48 | NUR ---
EYES CLOSED, EASILY AWAKENED. ABLE TO MAKE NEEDS KNOWN. ABLE TO USE COMMODE AT BEDSIDE BY SELF. IVF INFUSING WELL. CALL LIGHT WITHIN EASY REACH.
[2019-01-06 06:33] LABS: BASOPHIL % 1.3 % (0-2)
[2019-01-06 06:37] LABS: PLATELET COUNT 86 x10^3mcL (130-400); RED CELL DISTRIBUTION WIDTH 15.8 % (11.5-14.5)
[2019-01-06 07:00] LABS: ALKALINE PHOSPHATASE 270 U/L (46-116); ALT/SGPT 81 U/L (16-63); AST/SGOT 128 U/L (15-37); BILIRUBIN TOTAL 1.7 mg/dL (0.20-1.00); CALCIUM 7.4 mg/dL (8.5-10.1); CARBON DIOXIDE 18.5 mmol/L (21-32); CHLORIDE SERUM 110 mmol/L (98-107); CREATININE SERUM 0.9 mg/dL (0.7-1.3); GFR1 > 60 mL/min; GLUCOSE SERUM 107 mg/dL (74-106); MAGNESIUM 1.5 mg/dL (1.8-2.4); PHOSPHOROUS 3.3 mg/dL (2.5-4.9); POTASSIUM SERUM 3.4 mmol/L (3.5-5.1); SODIUM SERUM 140 mmol/L (136-145)
[2019-01-06 07:01] LABS: ALBUMIN 1.8 g/dL (3.4-5.0)
--- NOTE | 2019-01-06 07:02 | NUR ---
RECEIVED PT FROM HAT BLOCK BENCH HAND NURSE. PT RESTING IN BED, AWAKE AND ALERT, RESPONDS TO VERBAL STIMULUS, ABLE TO MAKE NEEDS KNOWN, RESP E/U ON RA. NO ACUTE DISTRESS NOTED. ON TELE 7 SHOWING NSR, HR: 73. IV TO RFA W/ NO SIGNS OF INFILTRATION, IVF INFUSING WELL. BED IN LOWEST POSITION AND CALL LIGHT WITHIN REACH. WILL CONTINUE TO MONITOR.
--- NOTE | 2019-01-06 07:14 | NUR ---
AWAKE AND ALERT, BREATHING UNLABORED. ABLE TO MAKE NEEDS KNOWN. IVF INFUSING WELL. IV SITE FREE FROM ERYTHEMA OR SWELLING. ENDORSED TO NURSE MIRELLA
--- NOTE | 2019-01-06 07:36 | NUR ---
PAGED DR. BRUNSON FOR LAB RESULT MA.5. NO NEW ORDERS AT THIS TIME.
[2019-01-06 07:51] VITALS: BP 155/84
[2019-01-06 12:16] VITALS: BP 147/78
--- NOTE | 2019-01-06 13:04 | NUR ---
PT IN BED HAVING LUNCH, AWAKE AND ALERT, RESP E/U ON RA. ABLE TO MAKE NEEDS KNOWN, NO ACUTE DISTRESS NOTED AT THIS TIME. BED IN LOWEST POSITION AND CALL LIGHT WITHIN REACH. WILL CONTINUE TO MONITOR.
--- NOTE | 2019-01-06 15:12 | NUR ---
Discount pharmacy card and list to low cost medical clinics given to patient by Cecy.
[2019-01-06 16:26] VITALS: BP 136/70
--- NOTE | 2019-01-06 17:20 | NUR ---
PT RESTING IN BED, AWAKE AND ALERT, RESP E/U ON RA. PT DENIES HEADACHE, NAUSEA OR ABD PAIN. NO ACUTE DISTRESS NOTED. IV TO RFA W/ NO SIGNS OF INFILTRATION, IVF INFUSING WELL. BED IN LOWEST POSITION AND CALL LIGHT WITHIN REACH. WILL ENDORSE TO ONCOMING NURSE.
--- NOTE | 2019-01-06 19:20 | NUR ---
RECEIVED PT LAYING IN BED, NO ACUTE DISTRESS OBSEREVED, DENIES PAIN OR DISCOMFORT AT THIS TIME. AA/OX2, ABLE TO CORRECTLY STATE NAME, , AND PLACE, SPEECH CLEAR AND APPORPRIATE, ABLE TO MAKE NEEDS KNOWN. NSR TO TELE #7, HR 64, NO CP. PULSES PRESENT AND EQUAL THROUGHOUT, NO EDEMA. BREATHING ON RA, EVEN AND UNLABORED, NO SOB OR DYSPNEA OBSERVED. ABD ROUND AND SOFT, NONTENDER WITH ACTIVE BOWEL SOUNDS, NO N/V/D. VOIDS FREELY. GENERALIZED WEAKNESS, ABLE TO TURN AND REPOSITION SELF IN BED. IV TO RFA IN PLACE, DRY, PATENT, INTACT, AND INFUSING FINAL BAG OF ORDERD IVF, NO S&S PHLEBITIS OR INFILTRATION NOTED. COMFORT AND SAFETY MEASURES IN PLACE. ALL NEEDS ASSESSED AND ATTENDED TO. CALL LIGHT WITHIN REACH. WILL CONTINUE TO MONITOR
[2019-01-06 20:02] VITALS: BP 147/76
--- NOTE | 2019-01-07 02:18 | NUR ---
PT SITTING UP AND BED, BREATHING EVEN AND UNLABORED, NO ACUTE DISTRESS OBSERVED. DENIES DISCOMFORT AT THIS TIME. IV TO LFA CONVERTED TO S/L. COMFORT AND SAFETY MEASURES IN PLACE. CALL LIGHT WITHIN REACH. WILL CONTINUE TO MONITOR
[2019-01-07 05:12] VITALS: BP 170/88
--- NOTE | 2019-01-07 06:13 | NUR ---
NO SIGNIFICANT CHANGES TO REPORT, PT COMPLIED WITH NURSING CARE THROUGHOUT THE SHIFT WITH NO ACUTE EVENTS OVERNIGHT. NO ACUTE DISTRESS OBSERSVED AT THIS TIME. PT LAYING IN BED, BREATHING EVEN AND UNLABORED. COMFORT AND SAFETY MEASURES MAINTAINED. ALL NEEDS ASSESSED AND ATTENDED TO. CALL LIGHT WITHIN REACH. WILL CONTINUE TO MONITOR AND ENDORSE CARE TO DAY SHIFT NURSE
[2019-01-07 06:19] LABS: BASOPHIL % 1.4 % (0-2)
[2019-01-07 06:26] LABS: PLATELET COUNT 88 x10^3mcL (130-400); RED CELL DISTRIBUTION WIDTH 15.9 % (11.5-14.5)
[2019-01-07 06:42] LABS: CALCIUM 7.6 mg/dL (8.5-10.1); CARBON DIOXIDE 17.7 mmol/L (21-32); CHLORIDE SERUM 110 mmol/L (98-107); CREATININE SERUM 0.9 mg/dL (0.7-1.3); GFR1 > 60 mL/min; GLUCOSE SERUM 102 mg/dL (74-106); MAGNESIUM 1.5 mg/dL (1.8-2.4); POTASSIUM SERUM 3.8 mmol/L (3.5-5.1); SODIUM SERUM 138 mmol/L (136-145)
--- NOTE | 2019-01-07 07:19 | NUR ---
REPORT TAKEN FROM RELIEF MANAGER NURSE AT THE BEDSIDE, PT AWAKE, ABLE TO MAKE NEEDS KNOWN. WILL CONTINUE TO MONITOR.
[2019-01-07 08:14] VITALS: BP 149/86
[2019-01-07 11:51] VITALS: BP 141/78
[2019-01-07 15:17] VITALS: BP 141/78
--- NOTE | 2019-01-07 16:28 | NUR ---
PATIENT SIGNED DC PAPERWORK, IV DC'D FROM RIGHT FOREARM WITH CATH INTACT, SITE DRESSED WITH GAUZE AND TAPE AFTER BLEEDING WAS CONTROLLED. PT TOLERATED WELL, ADVISED TO CHANGE CLOTHES, WILL BE TAKEN TO DC OFFICE/EXIT VIA WHEELCHAIR BY SECURITY SALES CONSULTANT.
--- NOTE | 2019-01-07 16:37 | NUR ---
[facility] CALLED, ETA 30-45 MIN. WILL TAKE PT TO LOBBY AT 1700
[2019-01-09 07:06] LABS: CK-BB 0 % (0); CK-MB 0 % (0-3); CK-MM 100 % (97-100); MACRO TYPE 1 0 % (Not Observed); MACRO TYPE 2 0 % (Not Observed)
[2019-01-13 04:06] LABS: CK-BB 0 % (0); CK-MB 0 % (0-3); CK-MM 95 % (97-100); MACRO TYPE 1 5 % (Not Observed); MACRO TYPE 2 0 % (Not Observed)
[2019-01-13 04:06] LABS: CK-BB 0 % (0); CK-MB 0 % (0-3); CK-MM 95 % (97-100); MACRO TYPE 1 5 % (Not Observed); MACRO TYPE 2 0 % (Not Observed)
== END 2019-01-07 17:00 | disposition home or self-care (01) | DRG 432 ==
LOC: EDBD 21:06 → ED 21:06 → EDBD 01-02 00:11 → DU 01-02 00:11
PROVIDERS: Emergency Medicine; Internal Medicine; ADMIT Internal Medicine
DX: K70.40 Alcoholic hepatic failure without coma (principal); I21.A1 Myocardial infarction type 2; N17.0 Acute kidney failure with tubular necrosis; E43 Unspecified severe protein-calorie malnutrition; K92.1 Melena; E87.2 Acidosis; E87.0 Hyperosmolality and hypernatremia; D68.69 Other thrombophilia; F10.239 Alcohol dependence with withdrawal, unspecified; Z68.1 Body mass index [BMI] 19.9 or less, adult; R16.0 Hepatomegaly, not elsewhere classified; E86.0 Dehydration; E87.6 Hypokalemia; H10.33 Unspecified acute conjunctivitis, bilateral; K70.30 Alcoholic cirrhosis of liver without ascites; Y90.0 Blood alcohol level of less than 20 mg/100 ml
CPT/HCPCS: 83880; 85378; C9113; G0378; G0480; J0360; J0696; J2060; J3475; J3480; J7030; J7040; J7060; Q0092; Q9967

== ENCOUNTER 2019-02-22 19:29 | Inpatient (IN) | payer MEDICAID ==
[~2019-02-22] VITALS: Ht 172.7 cm; Wt 94.0 kg
[2019-02-22 20:22] LABS: BASOPHIL % 1.1 % (0-2); PLATELET COUNT 136 x10^3mcL (130-400)
[2019-02-22 20:26] LABS: CALCIUM 7.1 mg/dL (8.5-10.1); CARBON DIOXIDE 18.3 mmol/L (21-32); CHLORIDE SERUM 110 mmol/L (98-107); CREATININE SERUM 2.2 mg/dL (0.7-1.3); GFR1 33 mL/min; GLUCOSE SERUM 148 mg/dL (74-106); POTASSIUM SERUM 3.7 mmol/L (3.5-5.1); SODIUM SERUM 144 mmol/L (136-145)
[2019-02-22 20:32] LABS: RED CELL DISTRIBUTION WIDTH 15.7 % (11.5-14.5)
[2019-02-22 20:37] LABS: ALKALINE PHOSPHATASE 110 U/L (46-116); ALT/SGPT 34 U/L (16-63); AST/SGOT 45 U/L (15-37); BILIRUBIN TOTAL 1.23 mg/dL (0.20-1.00); LIPASE 184 IU/L (73-393); MAGNESIUM 1.8 mg/dL (1.8-2.4); T4(THYROXINE) 6.9 ug/dL (4.7-13.3)
[2019-02-22 20:39] LABS: ALBUMIN 1.6 g/dL (3.4-5.0)
[2019-02-22 20:57] LABS: CHOLESTEROL 50 mg/dL (<200); HDL CHOLESTEROL 22 mg/dL (40-60)
[2019-02-22 21:09] LABS: rbc morphology (normal/abnorm) ABNORMAL (NORMAL)
[2019-02-23 00:08] LABS: UA SPECIFIC GRAVITY 1.025 (1.005-1.035); microscopic required? YES; urine erythrocyte 2+ (NEGATIVE)
[2019-02-23 00:17] LABS: AMPHETAMINE QUAL UR NONE DETECTED (See below)
[2019-02-23 04:25] LABS: PLATELET COUNT 67 x10^3mcL (130-400); RED CELL DISTRIBUTION WIDTH 15.9 % (11.5-14.5)
[2019-02-23 04:46] LABS: CARBON DIOXIDE 19.2 mmol/L (21-32); MAGNESIUM 1.5 mg/dL (1.8-2.4); POTASSIUM SERUM 4.1 mmol/L (3.5-5.1)
[2019-02-23 04:52] LABS: BAND NEUTROPHIL 10 % (0-10); BASOPHIL 0 % (0-2); MONOCYTE 2 % (0-7); PLATELET MORPHOLOGY GIANT PLATELET SEEN; SEGMENTED NEUTROPHILS 88 % (37-75)
[2019-02-23 04:53] LABS: rbc morphology (normal/abnorm) ABNORMAL (NORMAL)
[2019-02-23 06:38] VITALS: BP 158/90
[2019-02-23 07:00] VITALS: BP 142/89
[2019-02-23 09:43] VITALS: Ht 172.7 cm; Wt 94.0 kg
[2019-02-23 11:24] VITALS: BP 106/67
[2019-02-23 15:28] VITALS: BP 117/69
[2019-02-23 18:30] LABS: CALCIUM 6.3 mg/dL (8.5-10.1); CARBON DIOXIDE 17.8 mmol/L (21-32); CREATININE SERUM 2.1 mg/dL (0.7-1.3); POTASSIUM SERUM 3.7 mmol/L (3.5-5.1)
[2019-02-23 18:44] LABS: PLATELET COUNT 80 x10^3mcL (130-400); RED CELL DISTRIBUTION WIDTH 16.5 % (11.5-14.5)
[2019-02-23 19:23] LABS: BAND NEUTROPHIL 8 % (0-10); BASOPHIL 0 % (0-2); MONOCYTE 2 % (0-7); SEGMENTED NEUTROPHILS 87 % (37-75)
[2019-02-23 19:25] VITALS: BP 143/83
[2019-02-23 19:26] LABS: rbc morphology (normal/abnorm) ABNORMAL (NORMAL)
[2019-02-23 19:27] LABS: PLATELET MORPHOLOGY PLATELETS DECREASED
[2019-02-23 21:08] LABS: PLATELET COUNT 85 x10^3mcL (130-400); RED CELL DISTRIBUTION WIDTH 16.5 % (11.5-14.5)
[2019-02-23 21:14] LABS: BAND NEUTROPHIL 8 % (0-10); BASOPHIL 0 % (0-2); MONOCYTE 2 % (0-7); PLATELET MORPHOLOGY PLATELETS DECREASED; SEGMENTED NEUTROPHILS 87 % (37-75)
[2019-02-23 21:16] LABS: rbc morphology (normal/abnorm) NORMAL (NORMAL)
[2019-02-23 23:41] VITALS: BP 146/78
[2019-02-24 00:55] LABS: PLATELET COUNT 84 x10^3mcL (130-400); RED CELL DISTRIBUTION WIDTH 16.9 % (11.5-14.5)
[2019-02-24 00:59] LABS: BAND NEUTROPHIL 10 % (0-10); MONOCYTE 5 % (0-7); SEGMENTED NEUTROPHILS 80 % (37-75); rbc morphology (normal/abnorm) NORMAL (NORMAL)
[2019-02-24 04:06] VITALS: BP 152/99
[2019-02-24 05:43] LABS: BASOPHIL % 0 % (0-2); PLATELET COUNT 86 x10^3mcL (130-400); RED CELL DISTRIBUTION WIDTH 16.7 % (11.5-14.5)
[2019-02-24 05:47] LABS: CALCIUM 6.9 mg/dL (8.5-10.1); CREATININE SERUM 1.9 mg/dL (0.7-1.3); MAGNESIUM 2.1 mg/dL (1.8-2.4); PHOSPHOROUS 4.6 mg/dL (2.5-4.9); POTASSIUM SERUM 3.7 mmol/L (3.5-5.1)
[2019-02-24 08:19] VITALS: BP 143/73
[2019-02-24 12:40] VITALS: BP 153/88
[2019-02-24 16:21] VITALS: BP 139/79
[2019-02-24 20:57] VITALS: BP 136/77
[2019-02-25] VITALS (9 sets, daily range): BP systolic 115–161; BP diastolic 82–92
[2019-02-25 06:24] LABS: BASOPHIL % 0.3 % (0-2)
[2019-02-25 06:51] LABS: CALCIUM 7.2 mg/dL (8.5-10.1); CARBON DIOXIDE 18.9 mmol/L (21-32); CREATININE SERUM 1.4 mg/dL (0.7-1.3); MAGNESIUM 2.3 mg/dL (1.8-2.4); PHOSPHOROUS 3.4 mg/dL (2.5-4.9); POTASSIUM SERUM 3.7 mmol/L (3.5-5.1)
[2019-02-25 07:25] LABS: PLATELET COUNT 86 x10^3mcL (130-400); RED CELL DISTRIBUTION WIDTH 16.9 % (11.5-14.5)
[2019-02-26 06:06] VITALS: BP 160/86
[2019-02-26 06:55] LABS: BASOPHIL % 0.5 % (0-2)
[2019-02-26 07:01] LABS: CALCIUM 6.8 mg/dL (8.5-10.1); CARBON DIOXIDE 20.6 mmol/L (21-32); CREATININE SERUM 1.5 mg/dL (0.7-1.3); MAGNESIUM 1.8 mg/dL (1.8-2.4); PHOSPHOROUS 2.9 mg/dL (2.5-4.9); POTASSIUM SERUM 3.4 mmol/L (3.5-5.1)
[2019-02-26 07:03] LABS: PLATELET COUNT 90 x10^3mcL (130-400); RED CELL DISTRIBUTION WIDTH 16.5 % (11.5-14.5)
[2019-02-26 09:30] VITALS: BP 122/68
[2019-02-26 12:31] VITALS: BP 137/75
[2019-02-26 13:32] VITALS: BP 139/45
[2019-02-26 17:22] VITALS: BP 134/78
[2019-02-26 20:36] VITALS: BP 129/76
[2019-02-27 05:27] VITALS: BP 139/76
[2019-02-27 06:53] LABS: CALCIUM 6.9 mg/dL (8.5-10.1); CARBON DIOXIDE 21.3 mmol/L (21-32); CHLORIDE SERUM 111 mmol/L (98-107); CREATININE SERUM 1.2 mg/dL (0.7-1.3); GFR1 > 60 mL/min; GLUCOSE SERUM 94 mg/dL (74-106); MAGNESIUM 1.8 mg/dL (1.8-2.4); POTASSIUM SERUM 3.5 mmol/L (3.5-5.1); SODIUM SERUM 140 mmol/L (136-145)
[2019-02-27 07:12] LABS: BASOPHIL % 0.5 % (0-2)
[2019-02-27 07:39] LABS: PLATELET COUNT 94 x10^3mcL (130-400); RED CELL DISTRIBUTION WIDTH 15.9 % (11.5-14.5)
[2019-02-27 09:01] VITALS: BP 125/75
[2019-02-27] MEDS ORDERED: FER300 PO (10:39)
[2019-02-27] MEDS ORDERED: PRI20 PO (10:40)
[2019-02-27] MEDS ORDERED: MIRALAX17 GM/Dose PO (10:41)
[2019-02-27] MEDS ORDERED: LEVOFLOXACIN500 M1 PO (10:48)
[2019-02-27 14:21] VITALS: BP 125/75
[2019-02-27 16:50] VITALS: BP 126/67
[2019-02-27 21:30] VITALS: BP 14/72; BP 142/72
[2019-02-28 05:57] VITALS: BP 140/77
[2019-02-28 06:40] LABS: BASOPHIL % 0.4 % (0-2)
[2019-02-28 06:53] LABS: PLATELET COUNT 111 x10^3mcL (130-400); RED CELL DISTRIBUTION WIDTH 16.2 % (11.5-14.5)
[2019-02-28 06:54] LABS: CALCIUM 7.3 mg/dL (8.5-10.1); CARBON DIOXIDE 20.2 mmol/L (21-32); CHLORIDE SERUM 110 mmol/L (98-107); CREATININE SERUM 1.1 mg/dL (0.7-1.3); GFR1 > 60 mL/min; GLUCOSE SERUM 136 mg/dL (74-106); MAGNESIUM 1.9 mg/dL (1.8-2.4); PHOSPHOROUS 2.9 mg/dL (2.5-4.9); POTASSIUM SERUM 3.5 mmol/L (3.5-5.1); SODIUM SERUM 139 mmol/L (136-145)
[2019-02-28 09:02] VITALS: BP 133/60
[2019-02-28 17:02] VITALS: BP 149/85
[2019-02-28 20:34] VITALS: BP 129/72
[2019-03-01 05:12] VITALS: BP 139/78
[2019-03-01 06:44] LABS: BASOPHIL % 0.3 % (0-2)
[2019-03-01 06:59] LABS: CALCIUM 7.3 mg/dL (8.5-10.1); CARBON DIOXIDE 22.6 mmol/L (21-32); CHLORIDE SERUM 110 mmol/L (98-107); GFR1 > 60 mL/min; GLUCOSE SERUM 126 mg/dL (74-106); MAGNESIUM 1.7 mg/dL (1.8-2.4); POTASSIUM SERUM 4.1 mmol/L (3.5-5.1); SODIUM SERUM 139 mmol/L (136-145)
[2019-03-01 07:00] LABS: PLATELET COUNT 122 x10^3mcL (130-400); RED CELL DISTRIBUTION WIDTH 15.9 % (11.5-14.5)
[2019-03-01 09:17] VITALS: BP 102/63
[2019-03-01 17:40] VITALS: BP 148/93
[2019-03-01 20:37] VITALS: BP 162/85
[2019-03-02 05:19] VITALS: BP 156/52
[2019-03-02 07:23] LABS: BASOPHIL % 0.3 % (0-2); PLATELET COUNT 144 x10^3mcL (130-400)
[2019-03-02 07:29] LABS: RED CELL DISTRIBUTION WIDTH 16.4 % (11.5-14.5)
[2019-03-02 07:32] LABS: CALCIUM 7.3 mg/dL (8.5-10.1); CARBON DIOXIDE 18.6 mmol/L (21-32); CHLORIDE SERUM 112 mmol/L (98-107); CREATININE SERUM 0.9 mg/dL (0.7-1.3); GFR1 > 60 mL/min; GLUCOSE SERUM 118 mg/dL (74-106); MAGNESIUM 1.6 mg/dL (1.8-2.4); PHOSPHOROUS 3.4 mg/dL (2.5-4.9); POTASSIUM SERUM 4.1 mmol/L (3.5-5.1); SODIUM SERUM 138 mmol/L (136-145)
[2019-03-02 09:09] VITALS: BP 151/82
[2019-03-02 17:36] VITALS: BP 141/78
[2019-03-02 19:52] VITALS: BP 135/74
[2019-03-03 04:50] VITALS: BP 146/77
[2019-03-03 09:00] VITALS: BP 147/84
[2019-03-03 09:54] VITALS: BP 152/80
[2019-03-03 18:36] VITALS: BP 161/68
[2019-03-03 20:42] VITALS: BP 144/77
[2019-03-04] VITALS (7 sets, daily range): BP systolic 107–149; BP diastolic 53–86
[2019-03-04 06:18] LABS: BASOPHIL % 0.8 % (0-2); PLATELET COUNT 156 x10^3mcL (130-400)
[2019-03-04 06:32] LABS: RED CELL DISTRIBUTION WIDTH 16.1 % (11.5-14.5)
[2019-03-04 06:52] LABS: CALCIUM 7.2 mg/dL (8.5-10.1); CARBON DIOXIDE 23.5 mmol/L (21-32); CHLORIDE SERUM 111 mmol/L (98-107); CREATININE SERUM 0.9 mg/dL (0.7-1.3); GFR1 > 60 mL/min; GLUCOSE SERUM 107 mg/dL (74-106); MAGNESIUM 1.3 mg/dL (1.8-2.4); PHOSPHOROUS 3.5 mg/dL (2.5-4.9); POTASSIUM SERUM 4.1 mmol/L (3.5-5.1); SODIUM SERUM 140 mmol/L (136-145)
[2019-03-05 05:19] VITALS: BP 135/74
[2019-03-05 06:06] LABS: BASOPHIL % 1.2 % (0-2); PLATELET COUNT 152 x10^3mcL (130-400)
[2019-03-05 06:09] LABS: RED CELL DISTRIBUTION WIDTH 16.2 % (11.5-14.5)
[2019-03-05 06:27] LABS: CALCIUM 7.5 mg/dL (8.5-10.1); CARBON DIOXIDE 21.5 mmol/L (21-32); CHLORIDE SERUM 111 mmol/L (98-107); GFR1 > 60 mL/min; GLUCOSE SERUM 138 mg/dL (74-106); MAGNESIUM 1.8 mg/dL (1.8-2.4); PHOSPHOROUS 3.6 mg/dL (2.5-4.9); POTASSIUM SERUM 3.3 mmol/L (3.5-5.1); SODIUM SERUM 141 mmol/L (136-145)
[2019-03-05 08:44] VITALS: BP 130/72
[2019-03-05 09:16] VITALS: BP 133/65
[2019-03-05] MEDS ORDERED: ALDACTONE50 MG PO (11:53)
[2019-03-05] MEDS ORDERED: FUROSEMIDE40 MG PO (11:53)
[2019-03-05 13:14] VITALS: BP 125/61
== END 2019-03-05 13:41 | disposition home or self-care (01) | DRG 720 ==
LOC: ED 19:29 → IC 21:15 → MU 21:15 → DU 21:15 → MU 21:15 → IC 02-23 06:22 → DU 02-24 17:23 → MU 02-26 17:53 → EDBD 03-05 13:41 → MU 03-05 13:41
PROVIDERS: Emergency Medicine; General Practice; Internal Medicine Gastroenterology; ADMIT Internal Medicine
PROC: 06L38CZ Occlusion of Esophageal Vein with Extraluminal Device, Via Natural or Artificial Opening Endoscopic (ICD-10-PCS; principal; 2019-02-23 10:00)
PROC: 0DC68ZZ Extirpation of Matter from Stomach, Via Natural or Artificial Opening Endoscopic (ICD-10-PCS; 2019-02-23 10:00)
DX: A41.9 Sepsis, unspecified organism (principal); K72.00 Acute and subacute hepatic failure without coma; N17.0 Acute kidney failure with tubular necrosis; E43 Unspecified severe protein-calorie malnutrition; I85.11 Secondary esophageal varices with bleeding; R18.8 Other ascites; D62 Acute posthemorrhagic anemia; K74.60 Unspecified cirrhosis of liver; E83.51 Hypocalcemia; K57.92 Diverticulitis of intestine, part unspecified, without perforation or abscess without bleeding; K52.9 Noninfective gastroenteritis and colitis, unspecified; N50.89 Other specified disorders of the male genital organs; K42.9 Umbilical hernia without obstruction or gangrene; Z68.26 Body mass index [BMI] 26.0-26.9, adult
CPT/HCPCS: 43235; 82962; 83880; 97116-GP; 97530-GP; C9113; G0378; G0480; J0171; J0360; J0696; J1200; J1610; J1940; J2250; J2310; J2354; J2405; J2543; J2930; J3010; J3475; J3490; J7030; J7040; J7050; P9016; P9047; Q0092

== ENCOUNTER 2019-03-21 09:09 | Emergency (ER) | payer MEDICAID ==
[~2019-03-21] VITALS: Ht 172.7 cm; Wt 74.8 kg
[~2019-03-21 09:09] MED LIST: ALDACTONE50 MG PO; FER300 PO; FUROSEMIDE40 MG PO; LEVOFLOXACIN500 M1 PO; MIRALAX17 GM/Dose PO; PRI20 PO
[2019-03-21 09:20] VITALS: Ht 172.7 cm; Wt 74.8 kg
[2019-03-21 11:54] LABS: BASOPHIL % 1.5 % (0-2)
[2019-03-21 12:06] LABS: CALCIUM 7.5 mg/dL (8.5-10.1); CARBON DIOXIDE 25.9 mmol/L (21-32); CHLORIDE SERUM 109 mmol/L (98-107); CREATININE SERUM 1.1 mg/dL (0.7-1.3); GFR1 > 60 mL/min; GLUCOSE SERUM 111 mg/dL (74-106); POTASSIUM SERUM 3.4 mmol/L (3.5-5.1); SODIUM SERUM 142 mmol/L (136-145)
[2019-03-21 12:10] LABS: PLATELET COUNT 112 x10^3mcL (130-400); RED CELL DISTRIBUTION WIDTH 15.3 % (11.5-14.5)
[2019-03-21 12:11] LABS: ALBUMIN 1.9 g/dL (3.4-5.0); ALKALINE PHOSPHATASE 228 U/L (46-116); ALT/SGPT 28 U/L (16-63); AST/SGOT 38 U/L (15-37); BILIRUBIN TOTAL 1.32 mg/dL (0.20-1.00); TOTAL PROTEIN, SERUM 6.5 g/dL (6.4-8.2)
[2019-03-21 14:07] LABS: SOURCE FLUID ASCITES
[2019-03-21 14:08] LABS: APPEARANCE FLUID HAZY; COLOR FLUID PALE YELLOW; RBC FLUID 700 /cumm; WBC FLUID 80 /cumm
[2019-03-21 15:20] LABS: LYMPHOCYTE FLUID 61 %
[2019-03-21 15:24] LABS: MONOCYTE FLUID 12 %
[2019-03-21 16:27] VITALS: BP 159/99
== END 2019-03-21 16:27 | disposition home or self-care (01) ==
LOC: ED 09:09 → EDBD 09:09 → ED 16:27
PROVIDERS: Emergency Medicine
DX: K74.60 Unspecified cirrhosis of liver (principal); R18.8 Other ascites
CPT/HCPCS: 36415; 49083; 83880; J2001

== ENCOUNTER 2019-03-23 18:25 | Inpatient (IN) | payer MEDICAID ==
[~2019-03-23] VITALS: Ht 170.2 cm; Wt 90.7 kg
[2019-03-23 19:09] VITALS: Ht 170.2 cm; Wt 90.7 kg
[2019-03-23 21:37] LABS: BASOPHIL % 1.3 % (0-2)
[2019-03-23 21:48] LABS: PLATELET COUNT 116 x10^3mcL (130-400); RED CELL DISTRIBUTION WIDTH 15.3 % (11.5-14.5)
[2019-03-23 21:56] LABS: ALKALINE PHOSPHATASE 247 U/L (46-116); ALT/SGPT 32 U/L (16-63); AST/SGOT 66 U/L (15-37); BILIRUBIN TOTAL 1.6 mg/dL (0.20-1.00); CALCIUM 7.3 mg/dL (8.5-10.1); CARBON DIOXIDE 24.9 mmol/L (21-32); CHLORIDE SERUM 108 mmol/L (98-107); CREATININE SERUM 1.2 mg/dL (0.7-1.3); GFR1 > 60 mL/min; GLUCOSE SERUM 104 mg/dL (74-106); SODIUM SERUM 142 mmol/L (136-145); TOTAL PROTEIN, SERUM 6.4 g/dL (6.4-8.2)
[2019-03-23 22:03] LABS: ALBUMIN 1.8 g/dL (3.4-5.0); AMYLASE 327 U/L (25-115)
[2019-03-23 22:04] LABS: POTASSIUM SERUM 2.8 mmol/L (3.5-5.1)
[2019-03-23 22:40] LABS: LIPASE 5911 IU/L (73-393)
[2019-03-24 00:47] LABS: microscopic required? NO
[2019-03-24 01:11] LABS: urine erythrocyte NEGATIVE (NEGATIVE)
[2019-03-24 01:29] VITALS: BP 161/90
[2019-03-24 02:01] LABS: AMPHETAMINE QUAL UR NONE DETECTED (See below)
[2019-03-24 06:10] VITALS: BP 153/84
[2019-03-24 07:43] LABS: BASOPHIL % 1.2 % (0-2)
[2019-03-24 07:45] LABS: PLATELET COUNT 98 x10^3mcL (130-400); RED CELL DISTRIBUTION WIDTH 15.5 % (11.5-14.5)
[2019-03-24 08:29] LABS: CARBON DIOXIDE 26.7 mmol/L (21-32); CHLORIDE SERUM 110 mmol/L (98-107); CREATININE SERUM 1.1 mg/dL (0.7-1.3); GFR1 > 60 mL/min; GLUCOSE SERUM 96 mg/dL (74-106); LIPASE 721 IU/L (73-393); MAGNESIUM 1.6 mg/dL (1.8-2.4); PHOSPHOROUS 3.2 mg/dL (2.5-4.9); POTASSIUM SERUM 3.3 mmol/L (3.5-5.1); SODIUM SERUM 143 mmol/L (136-145)
[2019-03-24 09:34] VITALS: BP 146/78
[2019-03-24 12:54] VITALS: BP 161/84
[2019-03-24 17:19] VITALS: BP 149/74
[2019-03-24 20:49] VITALS: BP 147/82
[2019-03-25 05:31] VITALS: BP 140/77
[2019-03-25 07:03] LABS: CALCIUM 7.3 mg/dL (8.5-10.1); CARBON DIOXIDE 24.2 mmol/L (21-32); CHLORIDE SERUM 110 mmol/L (98-107); CREATININE SERUM 1.2 mg/dL (0.7-1.3); GFR1 > 60 mL/min; GLUCOSE SERUM 90 mg/dL (74-106); MAGNESIUM 1.6 mg/dL (1.8-2.4); POTASSIUM SERUM 3.6 mmol/L (3.5-5.1); SODIUM SERUM 142 mmol/L (136-145)
[2019-03-25 07:09] LABS: PLATELET COUNT 100 x10^3mcL (130-400); RED CELL DISTRIBUTION WIDTH 15.4 % (11.5-14.5)
[2019-03-25 08:39] LABS: BAND NEUTROPHIL 3 % (0-10); BASOPHIL 0 % (0-2); MONOCYTE 14 % (0-7); PLATELET MORPHOLOGY PLATELETS DECREASED; SEGMENTED NEUTROPHILS 69 % (37-75)
[2019-03-25 08:40] LABS: rbc morphology (normal/abnorm) ABNORMAL (NORMAL)
[2019-03-25 10:09] VITALS: BP 153/80
[2019-03-25] MEDS ORDERED: FOL1 PO (10:57)
[2019-03-25] MEDS ORDERED: THI100 PO (10:57)
[2019-03-25 12:55] VITALS: BP 158/91
[2019-03-25 13:02] VITALS: BP 153/80
[2019-03-25] MEDS ORDERED: TOR10 PO (14:03)
== END 2019-03-25 18:52 | disposition home or self-care (01) | DRG 280 ==
LOC: ED 18:25 → DU 23:42 → EDBD 03-25 18:52 → DU 03-25 18:52
PROVIDERS: Emergency Medicine; General Practice; ADMIT Internal Medicine
DX: K70.40 Alcoholic hepatic failure without coma (principal); K70.31 Alcoholic cirrhosis of liver with ascites; E43 Unspecified severe protein-calorie malnutrition; G93.41 Metabolic encephalopathy; D61.818 Other pancytopenia; E87.8 Other disorders of electrolyte and fluid balance, not elsewhere classified; E83.42 Hypomagnesemia; N50.89 Other specified disorders of the male genital organs; E87.6 Hypokalemia; F10.11 Alcohol abuse, in remission; R74.0 Nonspecific elevation of levels of transaminase and lactic acid dehydrogenase [LDH]; K42.9 Umbilical hernia without obstruction or gangrene; Z91.19 Patient's noncompliance with other medical treatment and regimen; Z91.14 Patient's other noncompliance with medication regimen; Z59.0 Homelessness; Z68.31 Body mass index [BMI] 31.0-31.9, adult
CPT/HCPCS: 97116-GP; C9113; G0378; G0480; J0696; J1885; J1940; J2405; J3010; J3475; J7040; J7060; P9047; Q0092

== ENCOUNTER 2019-04-06 08:49 | Emergency (ER) | payer MEDICAID ==
[~2019-04-06] VITALS: Ht 172.7 cm; Wt 94.1 kg
[~2019-04-06 08:49] MED LIST changes: +FOL1 PO; +THI100 PO; +TOR10 PO
[2019-04-06 08:52] VITALS: Ht 172.7 cm; Wt 94.1 kg
[2019-04-06 12:25] VITALS: BP 151/82
== END 2019-04-06 12:25 | disposition home or self-care (01) ==
LOC: ED 08:49
DX: R18.8 Other ascites (principal); Z98.890 Other specified postprocedural states
CPT/HCPCS: 49083

== ENCOUNTER 2019-04-10 14:09 | Inpatient (IN) | payer MEDICAID ==
[~2019-04-10] VITALS: Ht 170.2 cm; Wt 85.3 kg
[2019-04-10 14:14] VITALS: Ht 170.2 cm; Wt 85.3 kg
--- NOTE | 2019-04-10 14:30 | NUR ---
PT HOT TO TOUCH. UNABLE TO OBTAIN AN ORAL TEMP DUE TO COLD DRINK. PT ASSISTED TO ASSIGN BED FROM TRIAGE VIA WHEELCHAIR. PLACED ON RATING SPECIALIST. EKG IN PROGRESS.
--- NOTE | 2019-04-10 14:48 | NUR ---
PER PT STS THAT HE HAS ACITIS AND WAS DRAINED FROM THE RT MID ABDOMEN THAT WILL NOT DROP DRAINING "CLEAR FLUIDS". PT STS THAT HE HAS GENERALIZED ABDOMINAL PAIN. NOTED ABDOMEN DISTENTION, WITH UMBILICAL HERNIA. PT CAME WITH COLOSTOMY BAG ON LT SIDE TO COVER AN OLD DRAINAGE SITE FOR ACSITIS. PT HAS ANOTHER DRAINING SITE TO RT COVERED WITH GAUZE, PT STS THAT IT WILL NOT STOP DRAINING. PT DENIES ANY TEMP. PT STS THAT HE HAS 10/10 PAIN IN ABDOMEN. EDEMA NOTED TO REHANA EXTREMITIES. PER PT STS PENIL INFLAMMATION. VSS. RESP E/U. PT PALCED ON CM. WILL CONTINUE TO MONITOR. +BOWEL SOUNDS TO ALL FOUR QUAD, LAST BM THIS MORNING. NOTED MASS TO RT CLAVIAL, UNKNOWN MASS.
[2019-04-10 15:18] LABS: BASOPHIL % 0.3 % (0-2)
[2019-04-10 15:19] LABS: PLATELET COUNT 126 x10^3mcL (130-400); RED CELL DISTRIBUTION WIDTH 16.1 % (11.5-14.5)
--- NOTE | 2019-04-10 15:27 | NUR ---
PT RETURNED FROM CT.
[2019-04-10 15:29] LABS: CALCIUM 7.9 mg/dL (8.5-10.1); CARBON DIOXIDE 22.1 mmol/L (21-32); CHLORIDE SERUM 110 mmol/L (98-107); CREATININE SERUM 1.3 mg/dL (0.7-1.3); GFR1 60 mL/min; GLUCOSE SERUM 125 mg/dL (74-106); POTASSIUM SERUM 3.4 mmol/L (3.5-5.1); SODIUM SERUM 141 mmol/L (136-145)
[2019-04-10 15:34] LABS: ALKALINE PHOSPHATASE 241 U/L (46-116); ALT/SGPT 33 U/L (16-63); AST/SGOT 46 U/L (15-37); BILIRUBIN TOTAL 1.37 mg/dL (0.20-1.00)
[2019-04-10 15:38] LABS: ALBUMIN 2.1 g/dL (3.4-5.0)
[2019-04-10 16:19] LABS: microscopic required? YES; urine erythrocyte 1+ (NEGATIVE)
--- NOTE | 2019-04-10 16:42 | NUR ---
PT IN POSITION OF COMFORT. PT STS THAT HE HAS " A LOT" OF PAIN IN HIS ABDOMEN. DR. BYRNE MADE AWARE. VSS. RESP E/U. WILL CONTINUE TO MONITOR.
--- NOTE | 2019-04-10 17:08 | NUR ---
ATTEMPTED TO CALL RE[ORT TO AXEL RN STS SHE IS PASSING MEDS AND TO CALL BACK IN A FEW MINUTES. WILL ATTEMPT TO CALL AXEL GOLDBERG IN A FEWE MINUTES.
--- NOTE | 2019-04-10 17:21 | NUR ---
REPORT GIVEN TO AXEL GOLDBERG TO ASSUME CARE OF PT.
--- NOTE | 2019-04-10 18:40 | NUR ---
AT 1800 - RECEIVED PATIENT FROM ER NURSE. SETTLED IN ROOM, ORIENTED TO SURROUNDINGS AND PLACED ON CARDIAC MONITORING. ADMITTED WITH ASCITES. PATIENT IS AWAKE, ALERT AND APPEARS ORIENTED. RESOURCE NURSE AT BEDSIDE DOING HISTORY AND ADMISSION. IV INFUSING VANCOMYCIN. AT 1830 - ABDOMINAL ULTRASOUND FOR ASCITES EVAL HAS BEEN DONE. TECH WILL CALL DR BRUNSON WITH RESULTS. PATIENT SITTING UP IN BED EATING A SANDWICH. AT 1845 - IV INFUSING NS AT 100 ML/HR WILL ENDORSE CARE TO NIGHT NURSE.
[2019-04-10 18:52] VITALS: BP 149/84
--- NOTE | 2019-04-10 19:16 | NUR ---
RECEIVED PT FROM ER. PT ADMIT FOR SEPSIS, PT IS A/O X4, VERBAL RESPONSIVE. LUNG SOUND DIM REHANA BASE. NO SOB, PO2 98% IN ROOM AIR. PT IS ON TELE 27, NSR WITH PVC, DENY ANY CHEST PAIN OR DISCOMFORT, BOWEL SOUND PRESENT ALL 4 QUADRANTS, VERY DISTENTED. THERE ARE S/P PARACENTESIS PUNCH SITE AT REHANA ABD. RIGHT SIDE HAS MOD CLEAN DRAINAGE. COVER WITH DRY DRESSING. PT HAS SWELLING BELOW WAIST. +3 EDEMA REHANA LEG, AND SWELLING AT SCROTUM TOO. IV AT RIGHT AC, NO LEAKING, NO INFILTRATION. ALL ADLS ASSIST, ALL NEED MET, CALL LIGHT IN REACH. WILL CONTINUE TO MONITOR.
--- NOTE | 2019-04-10 19:30 | NUR ---
REC'D PT FROM DAY NURSE. PT RESTING IN BED. AAOX3. REORIENTED TO AGE. FOLLOWS COMMANDS. SPEECH CLEAR. DROWSY. TELE 27. DENIES CP, DIZZINESS, OR PALPITATIONS. DENIES RESP DISTRESS OR SOB. BREATHING EVEN/UNLABORED ON RA. ABD SOFT/ROUND/DISTENDED. DENIES ABD PAIN OR N/V. C/O TENDERNESS TO BLQ UPON PALPATION, MORE TENDERNESS ON THE RLQ. PITTING EDEMA BLE. ELEVATED WITH PILLOWS. SCROTUM AND PENIS EDEMATOUS WELL. VOIDING FREELY. GEN WEAKNESS. PUNCTURE SITE TO RLQ LEAKING LARGE AMT OF SEROUS FLUID. DRESSING SATURATED AND REMOVED. APPLIED 4X4 GAUZE X4, COVERED WITH ABD PAD AND SECURED WITH SILK TAPE. IV TO RAC PATENT AND INFUSING, SITE WNL. CALL LIGHT WITHIN REACH, BED AT LOWEST POSITION. WILL CONTINUE TO MONITOR. FOLLOWED UP WITH DR. FERNÁNDEZ REGARDING US GUIDED PARACENTESIS- TO BE DONE IN THE MORNING.
--- NOTE | 2019-04-10 19:40 | NUR ---
DR. FERNÁNDEZ MADE AWARE OF K 3.4 AND AMMONIA 46.
--- NOTE | 2019-04-10 20:09 | NUR ---
SPOKE TO DR. FERNÁNDEZ. MADE AWARE OF REPEAT CXR RESULTS OF 25% RIGHT HYDROPNEUMOTHORAX, INCREASED FROM <5% R LUNG APEX DELAYED PNEUMOTHORAX FROM LAST CXR. NO CHANGES IN ORDERS AT THIS TIME.
[2019-04-10 20:59] VITALS: BP 124/79
[2019-04-10 21:44] LABS: AMPHETAMINE QUAL UR NONE DETECTED (See below)
[2019-04-11] VITALS (11 sets, daily range): BP systolic 123–155; BP diastolic 80–89
--- NOTE | 2019-04-11 01:51 | NUR ---
PT RESTING IN BED WITH EYES CLOSED. HOB UP. NO SIGNS OF DISTRESS NOTED. BREATHING EVEN/UNLABORED ON RA. BLE ELEVATED WITH PILLOWS. CALL LIGHT WITHIN REACH, BED AT LOWEST POSITION. WILL CONTINUE TO MONITOR.
--- NOTE | 2019-04-11 06:24 | NUR ---
PT UP TO THE RESTROOM TO VOID. DRESSING TO RLQ SATURATED WITH SEROUS FLUID. DRESSING REMOVED. GOWN AND CHUCKS WERE WET. PT GIVEN A BED BATH, LINENS, AND GOWN CHANGED. DRESSING REAPPLIED- 5 4X4 GAUZE AND ABD PAD. WHOLE DRESSING SECURED WITH FOAM TAPE. PLAN FOR PARACENTESIS TODAY. CALL LIGHT WITHIN REACH, BED AT LOWEST POSITION. WILL ENDORSE TO DAY NURSE.
[2019-04-11 06:43] LABS: BASOPHIL % 1.9 % (0-2)
[2019-04-11 06:44] LABS: PLATELET COUNT 99 x10^3mcL (130-400); RED CELL DISTRIBUTION WIDTH 16.2 % (11.5-14.5)
[2019-04-11 07:06] LABS: CALCIUM 7.4 mg/dL (8.5-10.1); CARBON DIOXIDE 24.4 mmol/L (21-32); CREATININE SERUM 1.3 mg/dL (0.7-1.3); POTASSIUM SERUM 3.4 mmol/L (3.5-5.1)
--- NOTE | 2019-04-11 07:45 | NUR ---
RECEIVED PATIENT FROM NIGHT NURSE. AWAKE, ALERT AND ORIENTED TO PERSON, PLACE, TIME AND SITUATION. CONVERSING APPROPRIATELLY. MONITOR SHOWING SINUS RHYTHM; RATE 90'S. IV SALINE LOCKED. ABDOMEN DISTENDED, FIRM WITH LEAKING OF ASCITES FLUID FROM R SIDE OF ABDOMEN - DRY DRESSING IN PLACE. PATIENT C/O PAIN IN ABDOMEN AND BLE. NOTED EXTENSIVE EDEMA OF BLE 2+. PATIENT SAT UP IN BED FOR BREAKFAST.
--- NOTE | 2019-04-11 09:47 | NUR ---
AT 0930 - CALL PLACED FOR DR BRUNSON TO NOTIFY OF LOW K LEVEL OF 3.4
--- NOTE | 2019-04-11 14:27 | NUR ---
PARACENTESIS WAS DONE BY DR. ILSSA VELAZQUEZ. 3.4L FLUID COME OUT. PUNCH SITE AT RIGHT SITE OF ABD. DRESSING APPIED BY DR. VELAZQUEZ. LAST B/P WAS 148/87. WILL CONTINUE TO MONITOR THE PT.
--- NOTE | 2019-04-11 14:27 | NUR ---
PARACENTESIS WAS DONE BY DR. LISSA VELAZQUEZ. 3.4L FLUID COME OUT. DRESSING APPIED BY DR. VELAZQUEZ. LAST B/P WAS 148/87. WILL CONTINUE TO MONITOR THE PT.
--- NOTE | 2019-04-11 14:30 | NUR ---
BODY FLUID FROM PARACENTESIS, SENT TO LAB PER ORDER.
--- NOTE | 2019-04-11 15:12 | NUR ---
AT 1240 - RECEIVED WORD THAT PATIENT WILL HAVE PARACENTESIS AT BEDSIDE. WRITTEN CONSENT SIGNED BY PATIENT. PATIENT KEPT NPO UNTIL PROCEDURE COMPLETION. AT 1350 - DR VELAZQUEZ AT [facility]. RESOURCE NURSE ASSISTING DOCTOR AND U/S TECH. AT 1420 - PARACENTESIS COMPLETED. TOTAL OF 3.4 L ASCITIC FLUID REMOVED. PATIENT MADE COMFORTABLE. VS WNL. AT 1500 - PATIENT WASHED AFTER HAVING LARGE SEMI-LIQUID BOWEL MOVEMENT. VSS. PATIENT DOES NOT WANT TO EAT AT THIS TIME. PARACENTESIS SITE, BOTH RECENT AND OLD HAVE SEEPAGE OF CLEAR LIQUID. COVERED WITH ABD PAD.
--- NOTE | 2019-04-11 15:30 | NUR ---
PATIENT C/O PAIN IN ABDOMEN. SPOKE BOY REGARDING AN ORDER FOR PAIN MEDICATION. AWAITING ORDER.
[2019-04-11 18:10] LABS: APPEARANCE FLUID HAZY; COLOR FLUID PALE YELLOW; LYMPHOCYTE FLUID 56 %; MONOCYTE FLUID 28 %; RBC FLUID 623 /cumm; SOURCE FLUID ASCITES; WBC FLUID 57 /cumm
--- NOTE | 2019-04-11 18:51 | NUR ---
PATIENT HAS BEEN MORE COMFORTABLE SINCE RECEIVING IV TORADOL FOR PAIN. HAS HAD SEVERAL SEMI-LIQUID BOWEL MOVEMENTS. DRESSING TO R ABDOMEN PARACENTESIS SITE CURRENTLY DRY. VSS. PATIENT HAS EATEN DINNER. WILL ENDORSE CARE TO NIGHT NURSE.
--- NOTE | 2019-04-11 19:30 | NUR ---
REC'D PT FROM DAY NURSE. PT RESTING IN BED. AAOX4. SPEECH CLEAR, FOLLOWS COMMANDS. TELE 27. DENIES CP, DIZZINESS, OR PALPITATIONS. DENIES RESP DISTRESS OR SOB. BREATHING EVEN/UNLABORED ON RA. PITTING EDEMA BLE, ELEVATED WITH PILLOWS. ABD SOFT/DISTENDED. ABD PAD X2 TO R ABD IN PLACE. SOME SEROUS FLUID ON DRESSING. PT IS S/P PARACENTESIS TODAY. DENIES ABD PAIN OR TENDERNESS. C/O DIARRHEA- PT ON LACTULOSE. VOIDING FREELY. SCROTAL AND PENILE EDEMA- SWELLING REDUCED FROM LAST NIGHT. USING URINAL. GEN WEAKNESS. UP WITH ASSIST AND WALKER. IV TO RAC FLUSHED AND PATENT, SITE WNL. CALL LIGHT WITHIN REACH, BED AT LOWEST POSITION. WILL CONTINUE TO MONITOR.
--- NOTE | 2019-04-11 21:00 | NUR ---
WOUND CARE PROVIDED. ABD DRESSING X2 REMOVED. HEAVY SEROUS DRAINAGE. X2 PUNCTURE SITES TO R ABD. SUPERFICIAL SITE DOES NOT SEEM TO BE LEAKING. INFERIOR SITE LEAKING SEROUS FLUID- LESS THAN LAST NIGHT. 4X4 GAUZE X5 PLACED ON SITES AND COVERED WITH ABD PAD X2. WHOLE DRESSING SECURED WITH FOAM TAPE.
--- NOTE | 2019-04-11 22:28 | NUR ---
PT LAYING IN BED AND C/O FEELING VERY DIZZY. PT PUFFING OUT BREATHS OCCASIONALLY BUT SPEAKING IN SENTENCES. DENIES ANY PAIN OR SOB. BP 135/74, MAP 89, HR 93, RR 14, SPO2 99% ON RA, TEMP 98.6. DR. HANK ROJAS.
--- NOTE | 2019-04-11 22:55 | NUR ---
PT VOMITED ALL OVER THE FLOOR. FOOD RESIDUE. PT CLEANED UP. ZOFRAN GIVEN. REC'D CALL BACK FROM DR. MCKINNEY. REC'D ORDER FOR MECLIZINE. WILL GIVE.
--- NOTE | 2019-04-12 00:03 | NUR ---
PT RESTING IN BED WITH EYES CLOSED. SLEEPING WITH HOB UP. NO SIGNS OF DISTRESS OR PAIN NOTED. BREATHING EVEN/UNLABORED ON RA. BLE ELEVATED WITH PILLOWS. CALL LIGHT WITHIN REACH, BED AT LOWEST POSITION. WILL CONTINUE TO MONITOR.
--- NOTE | 2019-04-12 03:01 | NUR ---
PT RESTING IN BED WITH EYES CLOSED. SNORING. BREATHING EVEN/UNLABORED ON RA. NO S/SX OF PAIN NOTED. HOB UP. CALL LIGHT WITHIN REACH, BED AT LOWEST POSITION.
--- NOTE | 2019-04-12 05:11 | NUR ---
PT SITTING AT THE SIDE OF THE BED. BREATHING EVEN/UNLABORED ON 2L O2 VIA NC, SPO2 99%. O2 REDUCED TO 1L, SPO2 96%. PT C/O FEELING BLOATED. DENIES ABD PAIN. DR. MCKINNEY PAGEGATED- REQUESTED SIMETHICONE. NO SIGNIFICANT CHANGES DURING SHIFT. CALL LIGHT WITHIN REACH, BED AT LOWEST POSITION. WILL ENDORSE TO DAY NURSE
[2019-04-12 05:40] VITALS: BP 131/74
--- NOTE | 2019-04-12 05:47 | NUR ---
PT RESTING IN BED WITH EYES CLOSED. AWAKENS WITH VERBAL STIMULI. DENIES ANY ABD PAIN AT REST. DENIES NAUSEA OR DIZZINESS. DRESSING TO R ABD CDI. PT STATES HE HAD MANY SMALL BOWEL MOVEMENTS IN THE NIGHT. PT CLEANED UP. GOWN AND LINENS CHANGED. BLE AND SCROTAL/PENILE EDEMA REDUCING. ABD STILL DISTENDED BUT SOFT. NO SIGNIFICANT CHANGES DURING SHIFT. CALL LIGHT WITHIN REACH, BED AT LOWEST POSITION. WILL ENDORSE TO DAY NURSE.
--- NOTE | 2019-04-12 07:15 | NUR ---
AO X 4. PT DENIES ANY PAIN/DISCOMFORT. LUNG SOUNDS CLEAR BILATERALLY. ON ROOM AIR. NSR ON MONITOR, TELE #27, HR = 96. IV ON RAC, SALINE LOCKED. ACTIVE BOWEL SOUNDS. ABD'L DISTENDED AND SOFT. ON LACTULOSE, C/O LOOSE STOOL. VOIDS INDEPENDENTLY. GENEREALIZED WEAKNESS. ABD'L PADS ON RLQ S/P PARACENTESIS ON 04/11, NO DRAINAGE NOTED. PULSES PRESENT IN UE AND LE. BLE EDEMA NOTED, 2+ PITTING IN R LE AND 1+ PITTING EDEMA IN L LE. CALL LIGHT WITHIN REACH. INSTRUCTED TO CALL FOR ANY PAIN/DISCOMFORT AND IF PADS BECOME SATURATED. WILL CONTINUE TO MONITOR.
[2019-04-12 07:28] LABS: CALCIUM 7.7 mg/dL (8.5-10.1); CARBON DIOXIDE 22.7 mmol/L (21-32); CREATININE SERUM 1.4 mg/dL (0.7-1.3); MAGNESIUM 1.5 mg/dL (1.8-2.4); PHOSPHOROUS 3.6 mg/dL (2.5-4.9); POTASSIUM SERUM 3.4 mmol/L (3.5-5.1)
[2019-04-12 07:43] LABS: PLATELET COUNT 101 x10^3mcL (130-400); RED CELL DISTRIBUTION WIDTH 15.7 % (11.5-14.5)
[2019-04-12 08:32] VITALS: BP 152/84
--- NOTE | 2019-04-12 10:32 | NUR ---
NURSING CO-SIGN THE DOCUMENTATION ENTERED BY THE IP HAS BEEN REVIEWED. REVIEWED/CO-SIGNED BY: Nurys Aponte DOCUMENTATION DONE BY:IVANIA SAM,STUDENT NURSE
--- NOTE | 2019-04-12 11:00 | NUR ---
PT C/O BEING COLD.PUT THE HEATER ON AND PROVIDED PT WITH WARM BLANKET.
[2019-04-12 12:04] VITALS: BP 152/85
--- NOTE | 2019-04-12 13:25 | NUR ---
PT ATE 100% OF LUNCH. LAYING COMFORTABLY IN BED. CALL LIGHT WITHIN REACH.
[2019-04-12 16:31] VITALS: BP 153/89
--- NOTE | 2019-04-12 18:21 | NUR ---
NO SIGNIFICNAT CHANGE NOTED.WILL ENDORSE TO NEXT SHIFT.
--- NOTE | 2019-04-12 19:20 | NUR ---
REC'D PT FROM DAY NURSE. PT RESTING IN BED. AAOX4, SPEECH CLEAR, FOLLOWS COMMANDS. TELE 27. DENIES CP, DIZZINESS, OR PALPITATIONS. DENIES RESP DISTRESS OR SOB. BREATHING EVEN/UNLABORED ON RA. PITTING EDEMA BLE, ELEVATED WITH PILLOWS. C/O BLE PA IN 11/12. WILL GIVE TORADOL. ABD SOFT/DISTENDED. S/P PARACENTESIS POD #1. DRESSING TO R ABD CDI. DENIES ABD PAIN, TENDERNESS, OR N/V. MILD SCROTAL AND PENILE EDEMA. VOIDING FREELY. AMB WITH ASSIST AND WALKER. GEN WEAKNESS. IV TO RAC FLUSHED AND PATENT, SITE WNL. CALL LIGHT WITHIN REACH, BED AT LOWEST POSITION. WILL CONTINUE TO MONITOR.
[2019-04-12 21:20] VITALS: BP 148/83
--- NOTE | 2019-04-12 21:40 | NUR ---
DRESSING TO R ABD REMOVED. SMALL AMT OF SEROUS DRAINAGE NOTED TO DRESSING. X2 PARACENTESIS INSERTION SITES NOTED- CLOSED AND HEALED. R LATERAL ABD SKIN TEAR NOTED- MILD SEROUS DRAINAGE. PINK WOUND BED. 1 X 0.4 CM. CLEANSED WITH NS. WEEKLY PICTURES OBTAINED. SMALL BANDAIDS X3 APPLIED TO SITES.
--- NOTE | 2019-04-13 01:15 | NUR ---
PT SITTING ON THE SIDE OF THE BED. HAD A MODERATED SIZED BROWN LOOSE BM ON THE COMMODE. NO BLOOD NOTED IN THE STOOL. PT CLEANED AND LINEN CHANGED. SPO2 93% ON 2L NC. NO COMPLAINTS AT THIS TIME. ASSISTED IN BED. HOB UP. CALL LIGHT WITHIN REACH, BED AT LOWEST POSITION. WILL CONTINUE TO MONITOR.
--- NOTE | 2019-04-13 01:19 | NUR ---
PT RESTING IN BED WITH EYES CLOSED. LAYING IN SEMIFOWLERS POSITION. NO SIGNS OF DISTRESS OR PAIN NOTED. BREATHING EVEN/UNLABORED ON RA. BLE ELEVATED WITH PILLOWS. CALL LIGHT WITHIN REACH, BED AT LOWEST POSITION. WILL CONTINUE TO MONITOR.
--- NOTE | 2019-04-13 03:35 | NUR ---
PT RESTING IN BED WITH EYES CLOSED. SNORING. BREATHING EVEN/UNLABORED ON RA. CALL LIGHT WITHIN REACH, BED AT LOWEST POSITION.
[2019-04-13 04:40] VITALS: BP 151/81
[2019-04-13 06:22] LABS: BASOPHIL % 1.1 % (0-2)
[2019-04-13 06:29] LABS: PLATELET COUNT 112 x10^3mcL (130-400); RED CELL DISTRIBUTION WIDTH 16.3 % (11.5-14.5)
[2019-04-13 06:32] LABS: CARBON DIOXIDE 23.5 mmol/L (21-32); CREATININE SERUM 1.5 mg/dL (0.7-1.3); MAGNESIUM 2.1 mg/dL (1.8-2.4); POTASSIUM SERUM 3.3 mmol/L (3.5-5.1)
--- NOTE | 2019-04-13 08:15 | NUR ---
PT RECIEVED FROM NIGHT NURSE. TELE #[address] HR = 106. PT IN BED EATING BREAKFAST. NO COMPLAINT OF PAIN. IN NO ACUTE DISTRESS. ABD ROUND AND DISTENDED. BANDAIDS ON RIGHT SIDE ARE DRY AND INTACT. IV ON LEFT FOREARM IS INTACT AND PATENT SALINE LOCK. WILL CONTINUE TO MONITOR.
[2019-04-13 08:42] VITALS: BP 121/73
[2019-04-13 12:33] VITALS: BP 138/82
--- NOTE | 2019-04-13 15:58 | NUR ---
RESTING IN NO DISTRESS. NO C/O PAIN AT THIS TIME.
[2019-04-13 17:01] VITALS: BP 153/87
--- NOTE | 2019-04-13 17:10 | NUR ---
[facility] pharmacy card and list to [facility] clinics given to patient by Cecy.
--- NOTE | 2019-04-13 18:02 | NUR ---
PT C/O PAIN TO BLE, 8/10 AND MILD ABD. DISCOMFORT. MEDICATED WITH TORADOL IVP PER PRN ORDER.
--- NOTE | 2019-04-13 18:48 | NUR ---
PT RESTING IN BED AFTER EATING DINNER. TELE #27 WITH NSR. PT COMPLAINS OF BILATERAL LOWER EXTREMITY PAIN ON A SCALE OF 8/10. BILATERAL LOWER LEGS PITTING EDEMA. ABD DISTENDED AND HARD. IN NO ACUTE DISTRESS. CALL LIGHT WITHIN REACH. WILL ENDORSE TO CARBONATION EQUIPMENT TENDER NURSE.
--- NOTE | 2019-04-13 18:59 | NUR ---
NURSING CO-SIGN THE DOCUMENTATION ENTERED BY THE STUDENT NURSE HAS BEEN REVIEWED. REVIEWED/CO-SIGNED BY: Divine Sanchez DOCUMENTATION DONE BY:Nidia JORDAN
--- NOTE | 2019-04-13 20:00 | NUR ---
RECEIVED PT IN BED, ALERT AND ORIENTED. CHINESE SPEAKING, ABLE TO VERBALIZE NEEDS. DENIES HEADACHE/DIZZINESS. RESP. EVEN AND UNLABORED. ON ROOM AIR, NO ACUTE DISTRESS NOTED. ABD. DISTENDED AND FIRM ,( ASCITES). BS ACTIVE, NO N/V NOTED. S/P PARACENTESIS, X2 BANDAIDS TO PUNCTURE SITES, NO BLEEDING NOTED. HL TO LFA, INTACT AND PATENT. ASSISTED WITH HS CARE. NO COMPLAINTS NOTED AT THIS TIME. SR ON THE MONITOR., DENIES CP OR PRESSURE. CALL LIGHT WITHIN REACH. WILL CONTINUE TO MONITOR.
[2019-04-13 21:04] VITALS: BP 123/71
--- NOTE | 2019-04-14 00:45 | NUR ---
NO COMPLAINTS NOTED AT THIS TIME.RESTING QUIETLY, WITH EYES CLOSED, APPEARS ASLEEP. EASILY AROUSABLE. RESP. EVEN AND UNLABORED. ON ROOM AIR, NO ACUTE DISTRESS NOTED. CALL LIGHT WITHIN REACH. WILL CONTINUE TO MONITOR.
[2019-04-14 05:23] VITALS: BP 161/80
--- NOTE | 2019-04-14 06:35 | NUR ---
AFEBRILE AND VITAL SIGNS STABLE. RESP. EVEN AND UNLABORED. NO ACUTE DISTRESS NOTED. SR ON THE MONITOR, DENIES CP OR ANY DISCOMFORT AT THIS TIME. KEPT COMFORTABLE. DUE MEDS GIVEN ORDERED. VOIDING FREELY. STRICT INTAKE AND OUTPUT MAINTAINED. WILL ENDORSE TO INCOMING NURSE.
[2019-04-14 06:40] LABS: CARBON DIOXIDE 22.8 mmol/L (21-32); CREATININE SERUM 1.5 mg/dL (0.7-1.3); MAGNESIUM 1.8 mg/dL (1.8-2.4); POTASSIUM SERUM 3.4 mmol/L (3.5-5.1)
[2019-04-14 06:44] LABS: BASOPHIL % 1.8 % (0-2)
[2019-04-14 07:19] LABS: PLATELET COUNT 101 x10^3mcL (130-400); RED CELL DISTRIBUTION WIDTH 16.2 % (11.5-14.5)
--- NOTE | 2019-04-14 07:22 | NUR ---
RECEIVED PT LYING IN BED A/A. BREATHING EQUAL/UNLABORED ON RA. C/O MILD PAIN TO L. LEG. NO REDNESS/SWELLING TO IV SITE. BED IN LOW POSITION, CALL LIGHT IN REACH, SAFETY PRECAUTIONS IN PLACE. WILL CONTINUE TO MONITOR
[2019-04-14 07:53] VITALS: BP 155/85
[2019-04-14 11:47] VITALS: BP 159/83
--- NOTE | 2019-04-14 13:20 | NUR ---
PT LYING IN BED A/A. BREATHING EQUAL/UNLABORED ON RA. NO ACUTE PAIN/ DISTRESS. NO REDNESS/SWELLING TO IV SITE. BED IN LOW POSITION, CALL LIGHT IN REACH, SAFETY PRECAUTIONS IN PLACE. WILL CONTINUE TO MONITOR
--- NOTE | 2019-04-14 14:12 | NUR ---
Initial Nutrition Assessment: 237T/B ANGELICA HONG IA HR Dx: Drainage from paracentesis punch site, sepsis PMHx: Liver cirrhosis, alcohol abuse, anasarca, Possible HCC PSHx: Abdominal paracentesis Labs: K 3.4L, BG 121H, BUN 29H, CREAT 1.5H, ALB 2.1L, HGB 7.8L Meds: Aldactone, Colace, lactulose, Lasix, zofran Diet: low sodium diet/ cardiac, FR 1500 ml/ day PO intake since admission: (04/13) breakfast 20%, (04/12) all meals 85%, (04/11) dinner 90%, lunch 75%, breakfast 100% Ht: 170.18 cm (67") Wt: 85.2 kg (187#) BMI: 29.4 kg/m2 Bed scale: 187# IBW: 148# (67 kg) %IBW: 126 UBW: unable to access Age: 63/M Food Allergies: NKFA Skin: Band-Aids to abd, s/p paracentesis Pierre: 20 Edema: ascites GI: Last BM: 04/13 Per H&P, Pt is a 63yo male with PMH of Liver cirrhosis, alcohol abuse and possible hepatocellular carcinoma who presented to ER with c/o discharge from right lower quadrant wound 1 day ago. Patient reports that he had abdominal paracentesis [address] Note (04/14): Patient was Mongolian speaking with no family at bedside. Per RN Meaghan, pt does not have any N/V/D/C at this time and has good PO. Problem with: N/V/D/C: none per RN Problems with: Chewing: Swallowing: none Current appetite: good Recent wt change: unable to access %wt change: n/a Vitamin/Supplement use: unable to access Special diet at home: unable to access Physical activity: unable to access Nutrition education given: none at this time. Food-drug interactions: none Education given: n/a Estimated Nutritional Needs Based on adjusted body weight (72 kg) Energy: 1009-2853 kcal/day (30-35 kcal/kg for sepsis) Protein: 86-101 g/day (1.2-1.4 g/kg for sepsis) Fluid: 0571-9973 mL/day (1 mL/kcal) Nutrition Diagnosis: 1. Increased nutrient needs related to sepsis as evidenced by estimated calorie and protein needs. Intervention 1. Recommend continuing low sodium diet/ cardiac diet, FR 1500 ml/ day. Monitor/Evaluate Goal: PO intake at least 75% of estimated needs Monitor: PO intake, Labs, GI function F/U in 3-5 days as moderate risk 04/17-
--- NOTE | 2019-04-14 14:12 | NUR ---
1. Recommend continuing low sodium diet/ cardiac diet, FR 1500 ml/ day.
[2019-04-14 17:06] VITALS: BP 143/93
--- NOTE | 2019-04-14 18:38 | NUR ---
PT LYING IN BED A/A. BREATHING EQUAL/UNLABORED ON RA. NO ACUTE PAIN/ DISTRESS. NO REDNESS/ SWELLING TO IV SITE. BANDAGES TO ABD, CDI. BED IN LOW POSITION, CALL LIGHT IN REACH, SAFETY PRECAUTIONS IN PLACE. WILL ENDORSE TO NIGHT NURSE
--- NOTE | 2019-04-14 20:00 | NUR ---
RECEIVED PT IN BED, RESTING, A/O X4, ABLE TO VERBALIZE NEEDS. DENIES HEADACHE/DIZZINESS AT THIS TIME. RESP. EVEN AND UNLABORED. ON ROOM AIR, NO ACUTE DISTRESS NOTED. SR ON THE MONITOR, DENIES CHEST PAIN OR ANY DISCOMFORT AT THIS TIME. ABD. DISTENDED, S/P PARACENTESIS, BANDAIDS TO PUNCTURE SITES, DRY AND INTACT. NO BLEEDING NOTED. BS ACTIVE, NO N/V NOTED. WITH GEN. WEAKNESS, ABLE TO AMBULATE SLOWLY AND WITH A WALKER. VOIDING FREELY. CALL LIGHT WITHIN REACH. WILL CONTINUE TO MONITOR.
[2019-04-14 20:05] VITALS: BP 147/89
--- NOTE | 2019-04-15 02:27 | NUR ---
RESTING QUIETLY, WITH EYES CLOSED, APPEARS ASLEEP, EASILY AROUSABLE. RESP.EVEN AND UNLABORED. ON ROOM AIR, NO ACUTE DISTRESS NOTED. ABLE TO REPOSITION SELF IN BED. CALL LIGHT WITHIN REACH. WILL CONTINUE TO MONITOR.
[2019-04-15 04:59] VITALS: BP 154/79
[2019-04-15 06:04] LABS: BASOPHIL % 1.1 % (0-2)
--- NOTE | 2019-04-15 06:14 | NUR ---
AFEBRILE AND VITAL SIGNS STABLE. RESP. EVEN AND UNLABORED. NO ACUTE DISTRESS NOTED. SLEPT WELL. NO COMPLAINTS OF PAIN OR ANY DISCOMFORT AT THIS TIME. ABD. REMAINS DISTENDED, NO N/V NOTED. VOIDING FREELY .KEPT COMFORTABLE . WILL CONTINUE TO MONITOR.
[2019-04-15 06:46] LABS: CALCIUM 8.2 mg/dL (8.5-10.1); CREATININE SERUM 1.4 mg/dL (0.7-1.3); POTASSIUM SERUM 4.1 mmol/L (3.5-5.1)
[2019-04-15 06:54] LABS: PLATELET COUNT 125 x10^3mcL (130-400); RED CELL DISTRIBUTION WIDTH 16.2 % (11.5-14.5)
--- NOTE | 2019-04-15 07:28 | NUR ---
REPORT TAKEN FROM EVENT AV OPERATOR NURSE AT THE BEDSIDE, PATIENT AWAKE AND ALERT, DENIED PAIN AT THIS TIME, RESTING COMFORTABLY, WILL CONTINUE TO MONITOR
[2019-04-15 08:35] VITALS: BP 150/82
[2019-04-15 12:09] VITALS: BP 154/86
[2019-04-15 13:01] VITALS: BP 154/86
--- NOTE | 2019-04-15 15:15 | NUR ---
IV DC'D FROM LEFT FOREARM, PATIENT TOLERATED WELL.
--- NOTE | 2019-04-15 15:44 | NUR ---
PATIENT TO BE DISCHARGED AT THIS TIME, THE PATIENT SIGNED DISCHARGE PAPERWORK AND WAS ADVISED ON FOLLOW UP CARE, PATIENT WAS GIVEN THE CHANCE TO ASK QUESTIONS, QUESTIONS ANSWERED USING A CREDIT COLLECTION ASSOCIATE AT THE BEDSIDE. PATIENT GIVEN CLOTHES, MULTIPLE BUS PASSES, AND FOOD AT THIS TIME, TAKEN DOWN TO LOBBY BY STEEL FABRICATOR. PATIENT TO STOP AT ADMITTING OFFICE PRIOR TO EXIT.
== END 2019-04-15 15:57 | disposition home or self-care (01) | DRG 280 ==
LOC: ED 14:09 → DU 16:37 → EDBD 04-15 15:57
PROVIDERS: Emergency Medicine; Internal Medicine; ADMIT Internal Medicine
PROC: 0W9G3ZZ Drainage of Peritoneal Cavity, Percutaneous Approach (ICD-10-PCS; principal; 2019-04-11)
DX: K70.31 Alcoholic cirrhosis of liver with ascites (principal); K70.40 Alcoholic hepatic failure without coma; E43 Unspecified severe protein-calorie malnutrition; E87.6 Hypokalemia; E83.51 Hypocalcemia; R74.0 Nonspecific elevation of levels of transaminase and lactic acid dehydrogenase [LDH]; D64.9 Anemia, unspecified; Z59.0 Homelessness; Z68.27 Body mass index [BMI] 27.0-27.9, adult
CPT/HCPCS: 49083; 88344; 97116-GP; G0378; J0696; J1885; J1940; J2001; J2405; J3370; J3475; J7030; J7050; J8597; Q0092

== ENCOUNTER 2019-05-04 12:14 | Emergency (ER) | payer MEDICAID ==
[~2019-05-04] VITALS: Ht 170.2 cm; Wt 99.8 kg
[2019-05-04 12:19] VITALS: Ht 170.2 cm; Wt 99.8 kg
[2019-05-04 13:15] LABS: BASOPHIL % 0.9 % (0-2)
[2019-05-04 13:22] LABS: CALCIUM 8.2 mg/dL (8.5-10.1); CARBON DIOXIDE 21.1 mmol/L (21-32); CREATININE SERUM 1.6 mg/dL (0.7-1.3); POTASSIUM SERUM 4.1 mmol/L (3.5-5.1)
[2019-05-04 13:26] LABS: BILIRUBIN TOTAL 1.1 mg/dL (0.20-1.00); TOTAL PROTEIN, SERUM 6.9 g/dL (6.4-8.2)
[2019-05-04 13:33] LABS: PLATELET COUNT 124 x10^3mcL (130-400); RED CELL DISTRIBUTION WIDTH 17.3 % (11.5-14.5)
[2019-05-04 13:35] LABS: ALBUMIN 1.9 g/dL (3.4-5.0)
[2019-05-04 17:25] VITALS: BP 132/74
== END 2019-05-04 17:25 | disposition home or self-care (01) ==
LOC: ED 12:14 → EDBD 12:14 → ED 17:25
PROVIDERS: Emergency Medicine
DX: K74.60 Unspecified cirrhosis of liver (principal); J45.909 Unspecified asthma, uncomplicated; R06.02 Shortness of breath; Z98.890 Other specified postprocedural states
CPT/HCPCS: 36415; 49083; 83880; C1729; J2001; J7613; Q0092

== ENCOUNTER 2019-05-28 04:44 | Inpatient (IN) | payer MEDICAID ==
[2019-05-28] VITALS (9 sets, daily range): BP systolic 111–140; BP diastolic 60–72
[~2019-05-28] VITALS: Ht 172.7 cm; Wt 100.8 kg
[2019-05-28 05:23] LABS: BASOPHIL % 1.4 % (0-2); PLATELET COUNT 102 x10^3mcL (130-400); RED CELL DISTRIBUTION WIDTH 18.2 % (11.5-14.5)
[2019-05-28 05:40] LABS: ALBUMIN 1.8 g/dL (3.4-5.0); CALCIUM 8.3 mg/dL (8.5-10.1); CARBON DIOXIDE 25.4 mmol/L (21-32); CREATININE SERUM 1.6 mg/dL (0.7-1.3); POTASSIUM SERUM 4.3 mmol/L (3.5-5.1)
[2019-05-28 05:41] LABS: BILIRUBIN TOTAL 0.8 mg/dL (0.20-1.00)
[2019-05-28 08:50] LABS: T3 TOTAL 0.79 ng/mL
[2019-05-28 09:30] LABS: CHOLESTEROL/HDL RATIO 2.9; MAGNESIUM 2.1 mg/dL (1.8-2.4)
[2019-05-28 12:49] LABS: FREE T4 1.23 ng/dL (0.76-1.46); T4(THYROXINE) 8.3 ug/dL (4.7-13.3)
[2019-05-28 13:45] LABS: microscopic required? NO
[2019-05-28 13:59] LABS: UA SPECIFIC GRAVITY 1.025 (1.005-1.035); urine erythrocyte NEGATIVE (NEGATIVE)
[2019-05-28 14:50] LABS: AMPHETAMINE QUAL UR NONE DETECTED (See below)
[2019-05-28 16:16] LABS: FREE THYROXINE INDEX 2.9 ug/dL (1.4-4.5)
[2019-05-29] VITALS (10 sets, daily range): BP systolic 92–119; BP diastolic 53–74
[2019-05-29 08:03] LABS: PLATELET COUNT 78 x10^3mcL (130-400)
[2019-05-29 08:41] LABS: CARBON DIOXIDE 24.6 mmol/L (21-32); CREATININE SERUM 1.4 mg/dL (0.7-1.3)
[2019-05-29 08:42] LABS: MAGNESIUM 1.9 mg/dL (1.8-2.4); PHOSPHOROUS 3.8 mg/dL (2.5-4.9)
[2019-05-29 20:41] LABS: APPEARANCE FLUID CLEAR; COLOR FLUID PALE YELLOW; RBC FLUID 229 /cumm; SOURCE FLUID ASCITES; WBC FLUID 97 /cumm
[2019-05-29 21:07] LABS: LYMPHOCYTE FLUID 66 %; MONOCYTE FLUID 3 %
[2019-05-30 05:35] VITALS: BP 107/61
[2019-05-30 06:29] LABS: IRON 48 ug/dL (65-170); TOTAL IRON BINDING CAPACITY 264 ug/dL (250-450)
[2019-05-30 07:07] LABS: CALCIUM 8.5 mg/dL (8.5-10.1); CARBON DIOXIDE 25.4 mmol/L (21-32); CREATININE SERUM 1.6 mg/dL (0.7-1.3); MAGNESIUM 1.8 mg/dL (1.8-2.4); PHOSPHOROUS 3.6 mg/dL (2.5-4.9); POTASSIUM SERUM 3.4 mmol/L (3.5-5.1)
[2019-05-30 07:25] LABS: BASOPHIL % 0.6 % (0-2)
[2019-05-30 07:28] LABS: PLATELET COUNT 75 x10^3mcL (130-400)
[2019-05-30 08:25] VITALS: BP 124/67
[2019-05-30 12:16] VITALS: BP 124/73
[2019-05-30 16:12] VITALS: BP 125/64
[2019-05-30 19:51] VITALS: BP 124/69
[2019-05-31 04:49] VITALS: BP 127/69
[2019-05-31 06:17] LABS: BASOPHIL % 1.1 % (0-2)
[2019-05-31 07:14] LABS: PLATELET COUNT 80 x10^3mcL (130-400); RED CELL DISTRIBUTION WIDTH 18.5 % (11.5-14.5)
[2019-05-31 07:57] LABS: CALCIUM 8.4 mg/dL (8.5-10.1); CARBON DIOXIDE 24.3 mmol/L (21-32); CREATININE SERUM 1.7 mg/dL (0.7-1.3); POTASSIUM SERUM 3.8 mmol/L (3.5-5.1)
[2019-05-31 08:08] VITALS: BP 126/59
[2019-05-31 12:28] VITALS: BP 115/65
[2019-05-31 17:12] VITALS: BP 123/66
[2019-06-01 07:12] LABS: BASOPHIL % 1.4 % (0-2)
[2019-06-01 07:27] VITALS: BP 138/77
[2019-06-01 07:40] LABS: PLATELET COUNT 83 x10^3mcL (130-400); RED CELL DISTRIBUTION WIDTH 18.7 % (11.5-14.5)
[2019-06-01 08:19] LABS: CARBON DIOXIDE 25.7 mmol/L (21-32); CREATININE SERUM 1.6 mg/dL (0.7-1.3)
[2019-06-01 08:20] LABS: CALCIUM 8.2 mg/dL (8.5-10.1)
[2019-06-01 08:21] LABS: POTASSIUM SERUM 2.9 mmol/L (3.5-5.1)
[2019-06-01 12:38] VITALS: BP 133/76
[2019-06-01 17:37] VITALS: BP 129/82
[2019-06-01 20:48] VITALS: BP 134/89
[2019-06-02 05:08] VITALS: BP 124/70
[2019-06-02 06:47] LABS: BASOPHIL % 1.1 % (0-2)
[2019-06-02 06:54] LABS: CALCIUM 8.6 mg/dL (8.5-10.1); CARBON DIOXIDE 25.8 mmol/L (21-32); CREATININE SERUM 1.6 mg/dL (0.7-1.3); MAGNESIUM 1.7 mg/dL (1.8-2.4); PHOSPHOROUS 2.9 mg/dL (2.5-4.9); POTASSIUM SERUM 4.1 mmol/L (3.5-5.1)
[2019-06-02 07:06] LABS: PLATELET COUNT 83 x10^3mcL (130-400)
[2019-06-02 09:32] VITALS: BP 117/69
[2019-06-02] MEDS ORDERED: LAC30L PO (13:19)
[2019-06-02] MEDS ORDERED: LASIX40 MG PO (13:19)
[2019-06-02] MEDS ORDERED: FERG PO (13:19)
[2019-06-02] MEDS ORDERED: ALD50 PO (13:19)
[2019-06-02 13:37] VITALS: BP 136/71
[2019-06-02 14:04] VITALS: BP 136/71
[2019-06-02 16:45] VITALS: BP 146/74
[2019-06-02 17:02] VITALS: Ht 172.7 cm; Wt 100.8 kg
[2019-06-02 21:26] VITALS: BP 131/69
[2019-06-03 06:11] VITALS: BP 129/82
[2019-06-03 07:49] LABS: BASOPHIL % 2.2 % (0-2); PLATELET COUNT 80 x10^3mcL (130-400); RED CELL DISTRIBUTION WIDTH 18.9 % (11.5-14.5)
[2019-06-03 07:59] VITALS: BP 135/82
[2019-06-03 08:21] LABS: CALCIUM 8.4 mg/dL (8.5-10.1); CARBON DIOXIDE 28.1 mmol/L (21-32); CREATININE SERUM 1.5 mg/dL (0.7-1.3); MAGNESIUM 1.7 mg/dL (1.8-2.4); PHOSPHOROUS 3.7 mg/dL (2.5-4.9); POTASSIUM SERUM 4.2 mmol/L (3.5-5.1)
[2019-06-03 10:55] VITALS: BP 135/82
[2019-06-03 12:10] VITALS: BP 133/75
== END 2019-06-03 15:20 | disposition home or self-care (01) | DRG 279 ==
LOC: ED 04:44 → EDBD 04:44 → DU 05:52 → MU 06-01 12:22
PROVIDERS: Emergency Medicine; Family Medicine; ADMIT Student in an Organized Health Care Education/Training Program
PROC: 0W9G3ZZ Drainage of Peritoneal Cavity, Percutaneous Approach (ICD-10-PCS; principal; 2019-05-28)
PROC: 0W9G3ZZ Drainage of Peritoneal Cavity, Percutaneous Approach (ICD-10-PCS; 2019-05-29)
PROC: 0W9G3ZZ Drainage of Peritoneal Cavity, Percutaneous Approach (ICD-10-PCS; 2019-06-02)
DX: K72.00 Acute and subacute hepatic failure without coma (principal); N17.0 Acute kidney failure with tubular necrosis; E43 Unspecified severe protein-calorie malnutrition; D61.818 Other pancytopenia; E87.8 Other disorders of electrolyte and fluid balance, not elsewhere classified; K70.31 Alcoholic cirrhosis of liver with ascites; E86.1 Hypovolemia; E87.6 Hypokalemia; D63.8 Anemia in other chronic diseases classified elsewhere; Z59.0 Homelessness; Z68.34 Body mass index [BMI] 34.0-34.9, adult
CPT/HCPCS: 36600; 49083; 83880; 84439; 87116; 87206; 88344; 97110-GP; 97116-GP; 97530-GP; C1729; G0378; J0696; J1940; J2405; J3480; J7030; J7050; J7613; J7620; P9047; Q0092

== ENCOUNTER 2019-06-06 18:18 | Inpatient (IN) | payer MEDICAID ==
[~2019-06-06] VITALS: Ht 172.7 cm; Wt 68.5 kg
[~2019-06-06 18:18] MED LIST changes: +ALD50 PO; +FERG PO; +LAC30L PO; +LASIX40 MG PO
[2019-06-06 18:22] VITALS: Ht 172.7 cm; Wt 68.5 kg
[2019-06-06 19:35] LABS: BASOPHIL % 0.4 % (0-2)
[2019-06-06 19:36] LABS: PLATELET COUNT 114 x10^3mcL (130-400); RED CELL DISTRIBUTION WIDTH 19.5 % (11.5-14.5)
[2019-06-06 19:59] LABS: CALCIUM 8.4 mg/dL (8.5-10.1); CARBON DIOXIDE 23.5 mmol/L (21-32); CREATININE SERUM 2.1 mg/dL (0.7-1.3); POTASSIUM SERUM 4.4 mmol/L (3.5-5.1)
[2019-06-06 20:04] LABS: ALBUMIN 1.8 g/dL (3.4-5.0); BILIRUBIN TOTAL 1.39 mg/dL (0.20-1.00); TOTAL PROTEIN, SERUM 6.7 g/dL (6.4-8.2)
[2019-06-06 20:53] LABS: UA SPECIFIC GRAVITY 1.015 (1.005-1.035); microscopic required? YES; urine erythrocyte NEGATIVE (NEGATIVE)
[2019-06-06 23:22] VITALS: BP 140/68
[2019-06-07 05:30] VITALS: BP 140/68
[2019-06-07 05:40] VITALS: BP 118/65
[2019-06-07 06:31] LABS: BASOPHIL % 0.8 % (0-2); PLATELET COUNT 110 x10^3mcL (130-400); RED CELL DISTRIBUTION WIDTH 20.1 % (11.5-14.5)
[2019-06-07 06:38] LABS: CALCIUM 8.3 mg/dL (8.5-10.1); CARBON DIOXIDE 26.7 mmol/L (21-32); CREATININE SERUM 1.9 mg/dL (0.7-1.3); MAGNESIUM 2.1 mg/dL (1.8-2.4); PHOSPHOROUS 5.2 mg/dL (2.5-4.9); POTASSIUM SERUM 4.2 mmol/L (3.5-5.1)
[2019-06-07 09:19] VITALS: BP 111/65
[2019-06-07 09:51] LABS: AMPHETAMINE QUAL UR NONE DETECTED (See below)
[2019-06-07 13:03] VITALS: BP 117/69
[2019-06-07 18:56] VITALS: BP 120/66
[2019-06-07 21:15] VITALS: BP 114/60
[2019-06-08 06:06] VITALS: BP 116/68
[2019-06-08 07:51] LABS: PLATELET COUNT 107 x10^3mcL (130-400); RED CELL DISTRIBUTION WIDTH 21.1 % (11.5-14.5)
[2019-06-08 08:02] LABS: CALCIUM 7.6 mg/dL (8.5-10.1); CARBON DIOXIDE 24.7 mmol/L (21-32); CREATININE SERUM 1.7 mg/dL (0.7-1.3); PHOSPHOROUS 4.2 mg/dL (2.5-4.9)
[2019-06-08 08:38] VITALS: BP 124/65
[2019-06-08 11:40] VITALS: BP 124/68
[2019-06-08 16:23] VITALS: BP 135/94
[2019-06-08 19:22] VITALS: BP 120/70
[2019-06-09 06:08] VITALS: BP 132/69
[2019-06-09 06:37] LABS: BASOPHIL % 1.8 % (0-2)
[2019-06-09 06:57] LABS: CALCIUM 8.3 mg/dL (8.5-10.1); CARBON DIOXIDE 28.7 mmol/L (21-32); CREATININE SERUM 1.7 mg/dL (0.7-1.3); PHOSPHOROUS 3.3 mg/dL (2.5-4.9); POTASSIUM SERUM 4.3 mmol/L (3.5-5.1)
[2019-06-09 07:17] LABS: PLATELET COUNT 125 x10^3mcL (130-400); RED CELL DISTRIBUTION WIDTH 21.8 % (11.5-14.5)
[2019-06-09 17:27] VITALS: BP 126/78
[2019-06-09 20:31] VITALS: BP 117/64
[2019-06-10 05:48] VITALS: BP 125/65
[2019-06-10 06:33] LABS: BASOPHIL % 0.8 % (0-2)
[2019-06-10 06:55] LABS: CARBON DIOXIDE 27.4 mmol/L (21-32); CREATININE SERUM 1.6 mg/dL (0.7-1.3); MAGNESIUM 1.9 mg/dL (1.8-2.4); PHOSPHOROUS 3.3 mg/dL (2.5-4.9); POTASSIUM SERUM 4.3 mmol/L (3.5-5.1)
[2019-06-10 06:57] LABS: PLATELET COUNT 116 x10^3mcL (130-400); RED CELL DISTRIBUTION WIDTH 21.2 % (11.5-14.5)
[2019-06-10 08:57] VITALS: BP 113/52
[2019-06-10] MEDS ORDERED: TAMIFLU30 MG PO (13:50)
[2019-06-10 15:05] VITALS: BP 113/52
[2019-06-10 17:56] VITALS: BP 118/62
[2019-06-10 20:00] VITALS: BP 135/70
[2019-06-11 06:23] VITALS: BP 150/78
[2019-06-11 06:43] LABS: BASOPHIL % 0.8 % (0-2); PLATELET COUNT 145 x10^3mcL (130-400)
[2019-06-11 06:57] LABS: RED CELL DISTRIBUTION WIDTH 21.4 % (11.5-14.5)
[2019-06-11 07:19] LABS: CALCIUM 8.2 mg/dL (8.5-10.1); CARBON DIOXIDE 26.4 mmol/L (21-32); CREATININE SERUM 1.7 mg/dL (0.7-1.3); PHOSPHOROUS 3.4 mg/dL (2.5-4.9)
[2019-06-11 08:23] VITALS: BP 131/73
[2019-06-11 12:06] VITALS: BP 126/77
[2019-06-11 16:39] VITALS: BP 141/63
[2019-06-11 21:36] VITALS: BP 124/73
[2019-06-12 05:47] VITALS: BP 137/77
[2019-06-12 07:00] LABS: BASOPHIL % 1.1 % (0-2); PLATELET COUNT 133 x10^3mcL (130-400)
[2019-06-12 07:04] LABS: RED CELL DISTRIBUTION WIDTH 20.9 % (11.5-14.5)
[2019-06-12 07:14] LABS: CARBON DIOXIDE 26.6 mmol/L (21-32); CREATININE SERUM 1.6 mg/dL (0.7-1.3); MAGNESIUM 1.9 mg/dL (1.8-2.4); POTASSIUM SERUM 4.3 mmol/L (3.5-5.1)
[2019-06-12 07:51] VITALS: BP 130/66
[2019-06-12 11:29] LABS: rbc morphology (normal/abnorm) ABNORMAL (NORMAL)
[2019-06-12 11:48] VITALS: BP 143/81
[2019-06-12 15:48] VITALS: BP 127/74
[2019-06-12 20:50] VITALS: BP 122/74
[2019-06-13 04:20] VITALS: BP 110/64
[2019-06-13 06:36] LABS: BASOPHIL % 1.2 % (0-2); PLATELET COUNT 142 x10^3mcL (130-400)
[2019-06-13 06:49] LABS: RED CELL DISTRIBUTION WIDTH 20.6 % (11.5-14.5)
[2019-06-13 06:53] LABS: CARBON DIOXIDE 28.1 mmol/L (21-32); CREATININE SERUM 1.5 mg/dL (0.7-1.3); POTASSIUM SERUM 4.3 mmol/L (3.5-5.1)
[2019-06-13 07:35] VITALS: BP 123/74
[2019-06-13 12:12] VITALS: BP 124/72
== END 2019-06-13 15:50 | disposition home or self-care (01) | DRG 279 ==
LOC: ED 18:18 → MU 21:36 → DU 21:36 → EDBEDREQSVC 21:55 → MU 23:00 → DU 23:24 → MU 23:25
PROVIDERS: Emergency Medicine; Internal Medicine; ADMIT Family Medicine
DX: K72.00 Acute and subacute hepatic failure without coma (principal); N17.0 Acute kidney failure with tubular necrosis; E43 Unspecified severe protein-calorie malnutrition; D69.59 Other secondary thrombocytopenia; J11.1 Influenza due to unidentified influenza virus with other respiratory manifestations; K70.31 Alcoholic cirrhosis of liver with ascites; F10.20 Alcohol dependence, uncomplicated; N39.0 Urinary tract infection, site not specified; M79.10 Myalgia, unspecified site; Y90.0 Blood alcohol level of less than 20 mg/100 ml; D63.8 Anemia in other chronic diseases classified elsewhere; Z59.0 Homelessness; Z68.25 Body mass index [BMI] 25.0-25.9, adult
CPT/HCPCS: 49083; 82962; 83880; 87804; 94150; 97116-GP; G0378; G0480; J1940; J7050; J7620; Q0092

== ENCOUNTER 2019-08-04 20:32 | Emergency (ER) | payer MEDICAID ==
[~2019-08-04] VITALS: Ht 170.2 cm; Wt 77.1 kg
[~2019-08-04 20:32] MED LIST changes: +TAMIFLU30 MG PO
[2019-08-04 20:54] VITALS: Ht 170.2 cm; Wt 77.1 kg
[2019-08-04 22:16] VITALS: BP 130/80
== END 2019-08-04 22:15 | disposition home or self-care (01) ==
LOC: ED 20:32
DX: K74.60 Unspecified cirrhosis of liver (principal); J45.909 Unspecified asthma, uncomplicated; Z87.19 Personal history of other diseases of the digestive system

== ENCOUNTER 2019-08-21 12:47 | Emergency (ER) | payer MEDICAID ==
[~2019-08-21] VITALS: Ht 170.2 cm; Wt 72.6 kg
[2019-08-21 14:28] VITALS: BP 135/83
== END 2019-08-21 14:28 | disposition home or self-care (01) ==
LOC: ED 12:47
DX: S80.02XA Contusion of left knee, initial encounter (principal); S80.01XA Contusion of right knee, initial encounter; S31.139A Puncture wound of abdominal wall without foreign body, unspecified quadrant without penetration into peritoneal cavity, initial encounter; T85.631A Leakage of intraperitoneal dialysis catheter, initial encounter; J45.909 Unspecified asthma, uncomplicated; Z98.890 Other specified postprocedural states; W01.0XXA Fall on same level from slipping, tripping and stumbling without subsequent striking against object, initial encounter; Y93.89 Activity, other specified; Y92.89 Other specified places as the place of occurrence of the external cause; Y99.8 Other external cause status
CPT/HCPCS: J2001; Q0092